=== PATIENT | female | born 1960 | race Caucasian/White ===

== ENCOUNTER 2024-04-24 16:14 | Outpatient (OUT) | payer MEDICARE, SELFPAY ==
[2024-04-24 16:34] LABS: Basophils Percent Auto 1.1 % (0.2-2.0); Eosinophils Absolute Auto 0.2 10^3/uL (0.0-0.7); Hematocrit 41.7 % (36.0-48.0); Hemoglobin 13.8 g/dL (12.0-16.0); Lymphocytes Absolute Auto 1.9 10^3/uL (1.2-3.8); Lymphocytes Percent Auto 51.3 % (20.5-60.0); Mean Corpuscular HGB Conc 33.1 g/dL (29.9-35.2); Mean Corpuscular Hemoglobin 30.7 pg (26.7-34.0); Mean Corpuscular Volume 92.9 fL (81.0-99.0); Mean Platelet Volume 9.9 fL (9.5-13.5); Monocytes Absolute Auto 0.4 10^3/uL (0.3-0.8); Monocytes Percent Auto 10.7 % (1.7-12.0); Neutrophils Absolute Auto 1.2 10^3/uL (1.4-6.5); Neutrophils Percent Auto 32.9 % (43.0-75.0); Platelet Count 192 10^3/uL (150-450); Red Blood Count 4.49 10^6/uL (4.20-5.40); Red Cell Distribution Width 11.6 % (11.0-15.0); White Blood Count 3.7 10^3/uL (4.0-11.0)
[2024-04-24 16:58] LABS: Estimated Average Glucose 105 mg/dL; Glycohemoglobin A1C 5.3 % (4.5-6.2)
[2024-04-24 17:59] LABS: Alanine Aminotransferase 29 U/L (14-59); Albumin Globulin Ratio 1.2; Albumin Level 3.8 g/dL (3.4-5.0); Alkaline Phosphatase 66 U/L (46-116); Aspartate Amino Transferase 20 U/L (15-37); BUN Creatinine Ratio 34.8; Bilirubin Total 0.5 mg/dL (0.2-1.0); Carbon Dioxide 30.3 mmol/L (21.0-32.0); Chloride 107 mmol/L (98-107); Estimated GFR (African America >60 (>=60 mL/min/1.73m^2); Estimated GFR (Non-African Ame >60 (>=60 mL/min/1.73m^2); Globulin 3.3 g/dL; Glucose 108 mg/dL (74-106); Potassium 4.3 mmol/L (3.5-5.1); Sodium 144 mmol/L (136-145); Thyroid Stimulating Hormone 4.337 uIU/mL (0.358-3.740); Total Protein 7.1 g/dL (6.4-8.2)
[2024-04-26 04:07] LABS: Vitamin B12 831 pg/mL (232-1245)
[2024-04-26 11:10] LABS: PTH, Intact 84 pg/mL (15-65)
== END 2024-04-24 16:15 | disposition home or self-care (01) ==
LOC: LAB 16:19
DX: E03.9 Hypothyroidism, unspecified (principal); E21.3 Hyperparathyroidism, unspecified; E55.9 Vitamin D deficiency, unspecified; R73.9 Hyperglycemia, unspecified
CPT/HCPCS: 36415; 80053; 82306; 82607; 83036; 83970; 84443; 85025

== ENCOUNTER 2024-08-27 14:18 | Outpatient (OUT) | payer MEDICARE, SELFPAY ==
--- OUTSIDE RECORDS SUMMARY | 2024-08-27 14:45 | XMS_ITS | CCD ---
Author Organization [facility] Care Team Providers Care Strip Cleaner Name Role Phone RONY, POOL D Attending Unavailable RONY, POOL D Primary Care Unavailable RONY, POOL D Referring Unavailable RONY, POOL D Primary Care Unavailable NURSE, FAMILY MED L [facility] Attending Unavailable SELF, REFERRAL Referring Unavailable RONY, POOL D Primary Care Unavailable RONY, POOL D Attending Unavailable RONY, POOL D Referring Unavailable RONY, POOL D Primary Care Unavailable ASHWINI CERVANTES Attending Unavailable RONY, POOL D Referring Unavailable RONY, POOL D Primary Care Unavailable Problems Problem Classification Problem Date Documented Date Episodic/Chronic Disorders of lipid metabolism (1 source) Hyperlipidemia, unspecified; Translations: [Hyperlipidemia, unspecified] Onset: 09-12-2023 Chronic Hemorrhoids (1 source) Unspecified hemorrhoids; Translations: [Unspecified hemorrhoids] Onset: 09-12-2023 Episodic Nutritional deficiencies (1 source) Mild protein-calorie malnutrition; Translations: [Mild protein-calorie malnutrition ([facility])] Onset: 09-12-2023 Chronic Osteoporosis (1 source) Age-related osteoporosis without current pathological fracture; Translations: [Age-related osteoporosis without current pathological fracture] Onset: 09-12-2023 Chronic Other and ill-defined heart disease (1 source) Cardiomegaly; Translations: [Cardiomegaly] Onset: 10-05-2023 Chronic Other and unspecified benign neoplasm (1 source) Benign neoplasm of parathyroid gland; Translations: [Benign neoplasm of parathyroid gland] Onset: 09-12-2023 Episodic Other endocrine disorders (1 source) Hyperparathyroidism, unspecified; Translations: [Hyperparathyroidism, unspecified ([facility])] Onset: 09-12-2023 Chronic Other nervous system disorders (1 source) Other specified mononeuropathies; Translations: [Other specified mononeuropathies] Onset: 09-12-2023 Chronic Other nervous system disorders (1 source) Other chronic pain; Translations: [Other chronic pain] Onset: 09-12-2023 Chronic Other screening for suspected conditions (not mental disorders or infectious disease) (2 sources) Abnormal electrocardiogram [ECG] [EKG]; Translations: [Encounter for screening mammogram for malignant neoplasm of breast] Onset: 09-12-2023 Episodic Substance-related disorders (1 source) Nicotine dependence, unspecified, uncomplicated; Translations: [Nicotine dependence, unspecified, uncomplicated] Onset: 09-12-2023 Chronic Results Test Name Value Interpretation Reference Range Facil ity CBC WITH DIFFon 09-20-2023 Erythrocyte distribution width (RBC) [Ratio] 12.9 % Normal 11.5-14.0 [facility] Comment on above: Performed By: #### L [id number] #### [facility] [address] [place] [address] [place] Hematocrit (Bld) [Volume fraction] 42.0 % Normal 36.0-48.0 [facility] Comment on above: Performed By: #### L [id number] #### [facility] [address] [place] [address] [place] Hemoglobin (Bld) [Mass/Vol] 14.1 g/dL Normal 11.6-14.8 [facility] Comment on above: Performed By: #### L [id number] #### [facility] [address] [place] [address] US MCH (RBC) [Entitic mass] 30.9 pg Normal 24.4-34.0 [facility] Comment on above: Performed By: #### L [id number] #### [facility] [address] [place] [address] US MCHC (RBC) [Mass/Vol] 33.7 g/dL Normal 30.0-37.0 [facility] Comment on above: Performed By: #### L [id number] #### [facility] [address] [place] [address] US MCV (RBC) [Entitic vol] 91.8 fL Normal 80.0-100.0 [facility] Comment on above: Performed By: #### L [id number] #### [facility] [address] [place] [address] [place] Platelet mean volume (Bld) [Entitic vol] 8.6 fL Normal 7.5-11.5 [facility] Comment on above: Performed By: #### L [id number] #### [facility] [address] [place] [address] [place] PLATELETS AUTOMATED 195 x10???3/uL Normal 130-400 [facility] Comment on above: Performed By: #### L [id number] #### [facility] [address] [place] [address] US RBC AUTOMATED 4.57 x10???6/uL Normal 3.50-5.50 [facility] Comment on above: Performed By: #### L [id number] #### [facility] [address] [place] [address] US WBC AUTOMATED CORRECTED 4.4 x10???3/uL Low 4.5-11.5 [facility] Comment on above: Performed By: #### L [id number] #### [facility] [address] [place] [address] US COMPREHENSIVE METABOLIC PNL, FASTINGon 09-20-2023 Albumin [Mass/Vol] 4.2 g/dL Normal 3.5-5.0 [facility] Comment on above: Performed By: #### L [id number] #### [facility] [address] [place] [address] [place] Albumin/Globulin [Mass ratio] 1.6 {ratio} Normal 1.5-2.5 [facility] Comment on above: Performed By: #### L [id number] #### [facility] [address] [place] [address] [place] ALP [Catalytic activity/Vol] 76 U/L Normal 38-126 [facility] Comment on above: Performed By: #### L [id number] #### [facility] [address] [place] [address] [place] ALT [Catalytic activity/Vol] 41 U/L High <35 [facility] Comment on above: Performed By: #### L [id number] #### [facility] [address] [place] [address] [place] Anion gap [Moles/Vol] 7 mmol/L Normal 5-19 [facility] Comment on above: Performed By: #### L [id number] #### [facility] [address] [place] [address] US AST [Catalytic activity/Vol] 48 U/L High 14-36 [facility] Comment on above: Performed By: #### L [id number] #### [facility] [address] [place] [address] [place] Bilirubin [Mass/Vol] 0.3 mg/dL Normal 0.2-1.3 [facility] Comment on above: Performed By: #### L [id number] #### [facility] [address] [place] [address] [place] Calcium [Mass/Vol] 10.8 mg/dL High 8.4-10.2 [facility] Comment on above: Performed By: #### L [id number] #### [facility] [address] [place] [address] [place] Chloride [Moles/Vol] 102 mmol/L Normal 98-107 [facility] Comment on above: Performed By: #### L [id number] #### [facility] [address] [place] [address] [place] CO2 [Moles/Vol] 29 mmol/L Normal 22-30 [facility] Comment on above: Performed By: #### L [id number] #### [facility] [address] [place] [address] US Creatinine [Mass/Vol] 0.73 mg/dL Normal 0.52-1.00 [facility] Comment on above: Performed By: #### L [id number] #### [facility] [address] [place] [address] US GFR/1.73 sq M.predicted MDRD (S/P/Bld) [Vol rate/Area] mL/min/{1.73_m2} Normal >60 [facility] Comment on above: Performed By: #### L [id number] #### [facility] [address] [place] [address] [place] Glucose [Mass/Vol] 107 mg/dL High 74-106 [facility] Comment on above: Performed By: #### L [id number] #### [facility] [address] [place] [address] [place] Narrative Estimated Glomerular Filtration Rate (eGFR) is calculated using the CKD-EPI (2020) equation, intended for patients 18 years of age and older. If gender is not documented or unknown , there will be no eGFR calculation. Abnormal [facility] Comment on above: Performed By: #### L [id number] #### [facility] [address] [place] [address] [place] Potassium [Moles/Vol] 4.3 mmol/L Normal 3.5-5.1 [facility] Comment on above: Performed By: #### L [id number] #### [facility] [address] [place] [address] [place] Protein [Mass/Vol] 6.9 g/dL Normal 6.3-8.2 [facility] Comment on above: Performed By: #### L [id number] #### [facility] [address] [place] [address] [place] Sodium [Moles/Vol] 138 mmol/L Normal 137-145 [facility] Comment on above: Performed By: #### L [id number] #### [facility] [address] [place] [address] US Urea nitrogen [Mass/Vol] 35 mg/dL High 7-17 [facility] Comment on above: Performed By: #### L [id number] #### [facility] [address] [place] [address] US Urea nitrogen/Creatinine [Mass ratio] 48 mg/mg High 6-20 [facility] Comment on above: Performed By: #### L [id number] #### [facility] [address] [place] [address] [place] LIPID PANELon 09-20-2023 Cholesterol [Mass/Vol] 168 mg/dL Normal 0-200 [facility] Comment on above: Performed By: #### L [id number] #### [facility] [address] [place] [address] US Cholesterol in HDL [Mass/Vol] 73 mg/dL Normal >40 [facility] Comment on above: Performed By: #### L [id number] #### [facility] [address] [place] [address] US Cholesterol in LDL [Mass/Vol] 79 mg/dL Normal <100 [facility] Comment on above: Performed By: #### L [id number] #### [facility] [address] [place] [address] US Triglyceride [Mass/Vol] 79 mg/dL Normal <150 [facility] Comment on above: Performed By: #### L [id number] #### [facility] [address] [place] [address] US MANUAL DIFFERENTIALon 2023 BASOPHIL % MANUAL 2 % High 0-1 [facility] Comment on above: Performed By: #### L [id number] #### [facility] [address] [place] [address] [place] BASOPHIL ABSOLUTE COUNT 10*3/UL BY MANUAL COUNT 0.09 x10???3/uL Normal 0.00-0.20 [facility] Comment on above: Performed By: #### L [id number] #### [facility] [address] [place] [address] US EOSINOPHIL % MANUAL 3 % Normal 0-4 [facility] Comment on above: Performed By: #### L [id number] #### [facility] [address] [place] [address] US EOSINOPHIL ABSOLUTE COUNT 10*3/UL BY MANUAL COUNT 0.13 x10???3/uL Normal 0.00-0.60 [facility] Comment on above: Performed By: #### L [id number] #### [facility] [address] [place] [address] US LYMPHOCYTE % MANUAL 49 % High 24-44 [facility] Comment on above: Performed By: #### L [id number] #### [facility] [address] [place] [address] US LYMPHOCYTE ABSOLUTE COUNT 10*3/UL BY MANUAL COUNT 2.16 x10???3/uL Normal 1.10-3.80 [facility] Comment on above: Performed By: #### L [id number] #### [facility] [address] [place] [address] US MONOCYTE % MANUAL 15 % High 0-10 [facility] Comment on above: Performed By: #### L [id number] #### [facility] [address] [place] [address] US MONOCYTE ABSOLUTE COUNT 10*3/UL BY MANUAL COUNT 0.66 x10???3/uL Normal 0.10-0.80 [facility] Comment on above: Performed By: #### L [id number] #### [facility] [address] [place] [address] US NEUTROPHIL % MANUAL 31 % Low 36-66 [facility] Comment on above: Performed By: #### L [id number] #### [facility] [address] [place] [address] US NEUTROPHIL ABSOLUTE COUNT 10*3/UL BY MANUAL COUNT 1.36 x10???3/uL Low 1.80-7.50 [facility] Comment on above: Performed By: #### L [id number] #### [facility] [address] [place] [address] US PLATELET ESTIMATE Adequate Normal [facility] Comment on above: Performed By: #### L [id number] #### [facility] [address] [place] [address] US PLATELET SATELLITOSIS Normal [facility] Comment on above: Performed By: #### L [id number] #### [facility] [address] [place] [address] [place] RBC MORPHOLOGY COMMENT Normal [facility] Comment on above: Performed By: #### L [id number] #### [facility] [address] [place] [address] US WBC MORPHOLOGY COMMENT Normal [facility] Comment on above: Performed By: #### L [id number] #### [facility] [address] [place] [address] US WBC PULL AUTOMATED CORRECTED 4.4 x10???3/uL Normal [facility] Comment on above: Performed By: #### L [id number] #### [facility] [address] [place] [address] US PTH INTACT W/O CALCIUM (3520 2)on 07-16-2021 PTH INTACT W/O CALCIUM (37805) PTH INTACT 101 (NOTE) Interpretive Guide Intact PTH Calcium ------- Normal Parathyroid Normal Normal Hypoparathyroidism Low or Low Normal Low Hyperparathyroidism Primary Normal or High High Secondary High Normal or Low Tertiary High High Non-Parathyroid Hypercalcemia Low or Low Normal High Test performed at [facility] [address] [address] Director: PRANAY CARVER MD [facility] 14-64 [facility]. Comment on above: Performed By: #### T SH, MCMP, T3R, VIDT, ADIF, FRT4, B12, ABC #### [facility] [address] [place] [address] THYROGLOBULIN PANEL ROQUE INCL UDED (29898)on 07-16-2021 THYROGLOBULIN PANEL ROQUE INCLUDED (44945) ANTI THYROGLOBULIN AB 2 THYROGLOBULIN <0.1 (NOTE) Reference Range: Intact Thyroid 2.8-40.9 Athyrotic <0.1 Note: Abnormal flagging is based on the reference interval for patients with intact thyroid. This test was performed using the Pratibha Yesenia chemiluminescent method. Values obtained from different assay methods cannot be used interchangeably. Thyroglobulin levels, regardless of value, should not be interpreted as absolute evidence of the presence or absence of disease. This specimen was found to contain anti-thyroglobulin antibodies. The presence of these autoantibodies may cause falsely low thyroglobulin values. In Tg-antibody positive patients the thyroglobulin by tandem mass spectrometry (test code 31648 - Thyroglobulin, LC/MS/MS; or panel test code 64417 - Thyroid Cancer (Thyroglobulin) Monitoring) test is recommended because it has no interference from autoantibodies. For additional information, please refer to http://education.[employer]/faq/ TEM795 (This link is being provided for informational/ educational purposes only.) Test performed at [address] [address] Director: PRANAY CARVER MD Low SEE COMMENT [facility] Comment on above: Performed By: #### T SH, MCMP, T3R, VIDT, ADIF, FRT4, B12, ABC #### [facility] [address] [place] [address] 32513 AUTOMATED BLOOD COUNTon 06-24 Erythrocyte distribution width (RBC) [Ratio] 13.2 % Normal 11.5-14.5 [facility] Comment on above: Performed By: #### T SH, MCMP, T3R, VIDT, ADIF, FRT4, B12, ABC #### [facility] [address] [place] [address]67[address] Hematocrit (Bld) [Volume fraction] 37.9 % Normal 36-48 [facility] Comment on above: Performed By: #### T SH, MCMP, T3R, VIDT, ADIF, FRT4, B12, ABC #### [facility] [address] [place] [address] Hemoglobin (Bld) [Mass/Vol] 12.7 g/dL Normal 12.0-15.0 [facility] Comment on above: Performed By: #### T SH, MCMP, T3R, VIDT, ADIF, FRT4, B12, ABC #### [facility] [address] [place] [address] 29585 MCH (RBC) [Entitic mass] 29.7 pg Normal 25.4-34.6 [facility] Comment on above: Performed By: #### T SH, MCMP, T3R, VIDT, ADIF, FRT4, B12, ABC #### [facility] [address] [place] [address] 31188 MCHC (RBC) [Mass/Vol] 33.5 g/dL Normal 30-37 [facility] Comment on above: Performed By: #### T SH, MCMP, T3R, VIDT, ADIF, FRT4, B12, ABC #### [facility] [address] [place] [address]61 MCV (RBC) [Entitic vol] 88.5 fL Normal 79-98 [facility] Comment on above: Performed By: #### T SH, MCMP, T3R, VIDT, ADIF, FRT4, B12, ABC #### [facility] [address] [place] [address]234 Platelets (Bld) [#/Vol] 243 10*3/uL Normal 130-400 [facility] Comment on above: Performed By: #### T SH, MCMP, T3R, VIDT, ADIF, FRT4, B12, ABC #### [facility] [address] [place] [address] 06608 RBC (Bld) [#/Vol] 4.29 10*6/uL Normal 3.5-5.5 [facility] Comment on above: Performed By: #### T SH, MCMP, T3R, VIDT, ADIF, FRT4, B12, ABC #### [facility] [address] [place] [address] 33655 WBC (Bld) [#/Vol] 7.6 10*3/uL Normal 4.5-11.5 [facility] Comment on above: Performed By: #### T SH, MCMP, T3R, VIDT, ADIF, FRT4, B12, ABC #### [facility] [address] [place] [address] 60369 COMP METABOLIC PANELon 07-15 Albumin [Mass/Vol] 4.3 g/dL Normal 3.5-5.0 [facility] Comment on above: Performed By: #### T SH, MCMP, T3R, VIDT, ADIF, FRT4, B12, ABC #### [facility] [address] [place] [address] 36750 Albumin/Globulin [Mass ratio] 1.4 {ratio} Low 1.5-2.5 [facility] Comment on above: Performed By: #### T SH, MCMP, T3R, VIDT, ADIF, FRT4, B12, ABC #### [facility] [address] [place] [address] 51487 ALK PHOS 82 U/L Normal 38-126 [facility] Comment on above: Performed By: #### T SH, MCMP, T3R, VIDT, ADIF, FRT4, B12, ABC #### [facility] [address] [place] [address] 26526 ALT [Catalytic activity/Vol] 22 U/L Normal <35 [facility] Comment on above: Performed By: #### T SH, MCMP, T3R, VIDT, ADIF, FRT4, B12, ABC #### [facility] [address] [place] [address] 64350 Anion gap [Moles/Vol] 10 mmol/L Normal 5-19 [facility] Comment on above: Performed By: #### T SH, MCMP, T3R, VIDT, ADIF, FRT4, B12, ABC #### [facility] [address] [place] [address] 12702 AST [Catalytic activity/Vol] 34 U/L Normal 14-36 [facility] Comment on above: Performed By: #### T SH, MCMP, T3R, VIDT, ADIF, FRT4, B12, ABC #### [facility] [address] [place] [address] Bilirubin [Mass/Vol] 0.4 mg/dL Normal 0.2-1.3 [facility] Comment on above: Performed By: #### T SH, MCMP, T3R, VIDT, ADIF, FRT4, B12, ABC #### [facility] [address] [place] [address] 63220 Calcium [Mass/Vol] 10.4 mg/dL High 8.4-10.2 [facility] Comment on above: Performed By: #### T SH, MCMP, T3R, VIDT, ADIF, FRT4, B12, ABC #### [facility] [address] [place] [address] 68804 Chloride [Moles/Vol] 101 mmol/L Normal 98-107 [facility] Comment on above: Performed By: #### T SH, MCMP, T3R, VIDT, ADIF, FRT4, B12, ABC #### [facility] [address] [place] [address] 40036 CO2 [Moles/Vol] 28 mmol/L Normal 22-30 [facility]. Comment on above: Performed By: #### T SH, MCMP, T3R, VIDT, ADIF, FRT4, B12, ABC #### [facility] [address] [place] [address] 82406 Creatinine [Mass/Vol] 0.69 mg/dL Normal 0.52-1.04 [facility] Comment on above: Performed By: #### T SH, MCMP, T3R, VIDT, ADIF, FRT4, B12, ABC #### [facility] [address] [place] [address] 93150 eGFR AM. >60 Normal >60 [facility] Comment on above: Performed By: #### T SH, MCMP, T3R, VIDT, ADIF, FRT4, B12, ABC #### [facility] [address] [place] [address] eGFR NON AM. >60 Normal >60 [facility]. Comment on above: Performed By: #### T SH, MCMP, T3R, VIDT, ADIF, FRT4, B12, ABC #### [facility] [address] [place] [address] Glucose [Mass/Vol] 110 mg/dL High 74-106 [facility] Comment on above: Performed By: #### T SH, MCMP, T3R, VIDT, ADIF, FRT4, B12, ABC #### [facility] [address] [place] [address] Potassium [Moles/Vol] 4.2 mmol/L Normal 3.5-5.1 [facility] Comment on above: Performed By: #### T SH, MCMP, T3R, VIDT, ADIF, FRT4, B12, ABC #### [facility] [address] [place] [address] Protein [Mass/Vol] 7.3 g/dL Normal 6.3-8.2 [facility] Comment on above: Performed By: #### T SH, MCMP, T3R, VIDT, ADIF, FRT4, B12, ABC #### [facility] [address] [place] [address] Sodium [Moles/Vol] 139 mmol/L Normal 137-145 [facility] Comment on above: Performed By: #### T SH, MCMP, T3R, VIDT, ADIF, FRT4, B12, ABC #### [facility] [address] [place] [address] Urea nitrogen [Mass/Vol] 29 mg/dL [facility] 7-17 [facility] Comment on above: Performed By: #### T SH, MCMP, T3R, VIDT, ADIF, FRT4, B12, ABC #### [facility] [address] [place] [address] Urea nitrogen/Creatinine [Mass ratio] 42.0 mg/mg High 6-20 [facility] Comment on above: Performed By: #### T SH, MCMP, T3R, VIDT, ADIF, FRT4, B12, ABC #### [facility] [address] [place] [address] 10203 DIFFERENTIALon 07-15-2021 ABSOLUTE NEUTROPHILS DO NO 3.9 K/UL Normal 1.8-7.5 [facility] Comment on above: Performed By: #### T SH, MCMP, T3R, VIDT, ADIF, FRT4, B12, ABC #### [facility] [address] [place] [address] 91948 Basophils (Bld) [#/Vol] 0.1 10*3/uL Normal 0-0.2 [facility] Comment on above: Performed By: #### T SH, MCMP, T3R, VIDT, ADIF, FRT4, B12, ABC #### [facility] [address] [place] [address] 98887 Basophils/100 WBC (Bld) 1.0 % Normal 0.0-2.3 [facility]. Comment on above: Performed By: #### T SH, MCMP, T3R, VIDT, ADIF, FRT4, B12, ABC #### [facility] [address] [place] [address] 15758 DIFF TYPE AUTO Normal [facility] Comment on above: Performed By: #### T SH, MCMP, T3R, VIDT, ADIF, FRT4, B12, ABC #### [facility] [address] [place] [address] 11792 Eosinophils (Bld) [#/Vol] 0.3 10*3/uL Normal 0-0.6 [facility] Comment on above: Performed By: #### T SH, MCMP, T3R, VIDT, ADIF, FRT4, B12, ABC #### [facility] [address] [place] [address] 51047 Eosinophils/100 WBC (Bld) 3.9 % Normal 0.1-4.5 [facility] Comment on above: Performed By: #### T SH, MCMP, T3R, VIDT, ADIF, FRT4, B12, ABC #### [facility] [address] [place] [address] Lymphocytes (Bld) [#/Vol] 2.5 10*3/uL Normal 1.1-3.8 [facility] Comment on above: Performed By: #### T SH, MCMP, T3R, VIDT, ADIF, FRT4, B12, ABC #### [facility] [address] [place] [address] 04513 Lymphocytes/100 WBC (Bld) 33.3 % Normal 18.5-46.9 [facility] Comment on above: Performed By: #### T SH, MCMP, T3R, VIDT, ADIF, FRT4, B12, ABC #### [facility] [address] [place] [address] 29906 Monocytes (Bld) [#/Vol] 0.8 10*3/uL Normal 0.1-0.8 [facility] Comment on above: Performed By: #### T SH, MCMP, T3R, VIDT, ADIF, FRT4, B12, ABC #### [facility] [address] [place] [address] 10350 Monocytes/100 WBC (Bld) 10.8 % Normal 4.2-12.4 [facility] Comment on above: Performed By: #### T SH, MCMP, T3R, VIDT, ADIF, FRT4, B12, ABC #### [facility] [address] [place] [address] 16232 Neutrophils/100 WBC (Bld) 51.0 % Normal 41.3-69.5 [facility] Comment on above: Performed By: #### T SH, MCMP, T3R, VIDT, ADIF, FRT4, B12, ABC #### [facility] [address] [place] [address]83 [place] 25 VITAMIN D TOTALon 06-24 [place] 25 VITAMIN D TOTAL 39 ng/mL Normal 30-100 [facility] Comment on above: Result Comment: Reference Values: DEFICIENT <20 ng/mL INSUFFICIENT 20 to <30 ng/mL SUFFICIENT 30 to 100 ng/mL POTENTIAL TOXICITY >100 ng/mL Performed By: #### T SH, MCMP, T3R, VIDT, ADIF, FRT4, B12, ABC #### [facility] [address] [place] [address] 68550 T4,FREEon 07-15-2021 Free T4 [Mass/Vol] 1.75 ng/dL Normal 0.78-2.19 [facility] Comment on above: Performed By: #### T SH, MCMP, T3R, VIDT, ADIF, FRT4, B12, ABC #### [facility] [address] [place] [address] 74576 TOTAL T3on 07-15-2021 TOTAL T3 1.29 ng/mL Normal 0.970-1.69 [facility] Comment on above: Performed By: #### T SH, MCMP, T3R, VIDT, ADIF, FRT4, B12, ABC #### [facility] [address] [place] [address] 03696 TSH, 3RD GENERATIONon 2021 TSH, 3RD GENERATION 0.034 mIU/L Low 0.465-4.68 [facility] Comment on above: Performed By: #### T SH, MCMP, T3R, VIDT, ADIF, FRT4, B12, ABC #### [facility] [address] [place] [address] 59260 VITAMIN B12on 07-15-2021 Cobalamin (Vitamin B12) [Mass/Vol] 824 pg/mL Normal 239-931 [facility] Comment on above: Performed By: #### T SH, MCMP, T3R, VIDT, ADIF, FRT4, B12, ABC #### [facility] [address] [place] [address] 91230 OPIATES CONFIRMATION (17928) on 09-04-2020 OPIATES CONFIRMATION (89327) CODEINE NEGATIVE (NOTE) See Note 1 MORPHINE >93762 (NOTE) See Note 1 HYDROCODONE NEGATIVE (NOTE) See Note 1 HYDROMORPHONE 497 (NOTE) See Note 1 OXYCODONE NEGATIVE (NOTE) See Note 1 OXYMORPHONE NEGATIVE (NOTE) See Note 1 NORHYDROCODONE NEGATIVE (NOTE) See Note 1 NOROXYCODONE NEGATIVE (NOTE) See Note 1 NOTE SEE NOTE (NOTE) See Note 2 Note 1 This test was developed and its analytical performance characteristics have been determined by [facility]. It has not been cleared or approved by the FDA. This assay has been validated pursuant to the CLIA regulations and is used for clinical purposes. Note 2 This drug testing is for medical treatment only. Analysis was performed as non-forensic testing and these results should be used only by healthcare providers to render diagnosis or treatment, or to monitor progress of medical conditions. For assistance with interpreting these drug results, please contact a [facility] Toxicology Specialist: [phone] ( ), M-F, 8am-6pm EST. Test performed at [address] [address] Director: PRANAY CARVER MD [facility] Comment on above: Performed By: #### T SH, MCMP, T3R, VIDT, ADIF, FRT4, B12, ABC #### [facility] [address] [place] [address], [place] [address] PTH INTACT W/O CALCIUM (3520 2)on 09-03-2020 PTH INTACT W/O CALCIUM (21572) PTH INTACT 112 (NOTE) Interpretive Guide Intact PTH Calcium ------- Normal Parathyroid Normal Normal Hypoparathyroidism Low or Low Normal Low Hyperparathyroidism Primary Normal or High High Secondary High Normal or Low Tertiary High High Non-Parathyroid Hypercalcemia Low or Low Normal High Test performed at [address] [address] Director: PRANAY CARVER MD [address] Comment on above: Performed By: #### T SH, MCMP, T3R, VIDT, ADIF, FRT4, B12, ABC #### [facility] [address] [place] [address] 72074 A1Con 09-02-2020 HbA1c (Bld) [Mass fraction] 5.2 % Normal 4.0-6.0 [facility] Comment on above: Performed By: #### T SH, MCMP, T3R, VIDT, ADIF, FRT4, B12, ABC #### [facility] [address] [place] [address] 40570 AUTOMATED BLOOD COUNTon 08-21 Erythrocyte distribution width (RBC) [Ratio] 13.0 % Normal 11.5-14.5 [facility] Comment on above: Performed By: #### T SH, MCMP, T3R, VIDT, ADIF, FRT4, B12, ABC #### [facility] [address] [place] [address] 71922 Hematocrit (Bld) [Volume fraction] 39.2 % Normal 36-48 [facility] Comment on above: Performed By: #### T SH, MCMP, T3R, VIDT, ADIF, FRT4, B12, ABC #### [facility] [address] [place] [address] 90110 Hemoglobin (Bld) [Mass/Vol] 13.1 g/dL Normal 12.0-15.0 [facility] Comment on above: Performed By: #### T SH, MCMP, T3R, VIDT, ADIF, FRT4, B12, ABC #### [facility] [address] [place] [address] 10170 MCH (RBC) [Entitic mass] 29.8 pg Normal 25.4-34.6 [facility] Comment on above: Performed By: #### T SH, MCMP, T3R, VIDT, ADIF, FRT4, B12, ABC #### [facility] [address] [place] [address] 47035 MCHC (RBC) [Mass/Vol] 33.3 g/dL Normal 30-37 [facility] Comment on above: Performed By: #### T SH, MCMP, T3R, VIDT, ADIF, FRT4, B12, ABC #### [facility] [address] [place] [address] 27632 MCV (RBC) [Entitic vol] 89.3 fL Normal 79-98 [facility] Comment on above: Performed By: #### T SH, MCMP, T3R, VIDT, ADIF, FRT4, B12, ABC #### [facility] [address] [place] [address] 60752 Platelets (Bld) [#/Vol] 210 10*3/uL Normal 130-400 [facility] Comment on above: Performed By: #### T SH, MCMP, T3R, VIDT, ADIF, FRT4, B12, ABC #### [facility] [address] [place] [address] 48620 RBC (Bld) [#/Vol] 4.39 10*6/uL Normal 3.5-5.5 [facility] Comment on above: Performed By: #### T SH, MCMP, T3R, VIDT, ADIF, FRT4, B12, ABC #### [facility] [address] [place] [address] 27355 WBC (Bld) [#/Vol] 3.3 10*3/uL Low 4.5-11.5 [facility] Comment on above: Performed By: #### T SH, MCMP, T3R, VIDT, ADIF, FRT4, B12, ABC #### [facility] [address] [place] [address] 92234 BONE MINERAL DENSITY SCANon 09-02-2020 BONE MINERAL DENSITY SCAN [id number] Signs/Symptoms: [facility] ID#[id number] History: SCREENING,HYPER CALCEMIA,HYPO THYROIDISM BONE MINERAL DENSITY SCAN CLINICAL HISTORY: Female, age 60 years. SCREENING,HYPER CALCEMIA,HYPO THYROIDISM. post menopausal screen for osteoporosis. . TECHNIQUE: DEXA scan of spine, dual hip COMPARISON: na FINDINGS: T-SCORES Lumbar spine: -3.1 (osteoporosis); Previously: na Left hip: -2.9 (osteoporosis); Previously: na Right hip: -3.2 (osteoporosis); Previously: na The T-scores are also available for review on [facility] PACS or by accessing the [facility] electronic medical record, [employer]. IMPRESSION: OSTEOPOROSIS IS PRESENT IN THE LUMBAR SPINE AND IN BOTH HIPS Approved By: See Singer Electronically Signed On: 09/02/2020 14:05 by: See Singer Order Number: [id number] [facility] Comment on above: Order Comment: PT SC HEDULED AND HAS ORDERS PREV [facility]...PT WILL TRY TO HAVE MAILED--- COMP METABOLIC PANELon 09-02 Albumin [Mass/Vol] 4.2 g/dL Normal 3.5-5.0 [facility] Comment on above: Performed By: #### T SH, MCMP, T3R, VIDT, ADIF, FRT4, B12, ABC #### [facility] [address] [place] [address] 12840 Albumin/Globulin [Mass ratio] 1.5 {ratio} Normal 1.5-2.5 [facility] Comment on above: Performed By: #### T SH, MCMP, T3R, VIDT, ADIF, FRT4, B12, ABC #### [facility] [address] [place] [address] 61661 ALK PHOS 62 U/L Normal 38-126 [facility] Comment on above: Performed By: #### T SH, MCMP, T3R, VIDT, ADIF, FRT4, B12, ABC #### [facility] [address] [place] [address] 08438 ALT [Catalytic activity/Vol] 18 U/L Normal <35 [facility] Comment on above: Performed By: #### T SH, MCMP, T3R, VIDT, ADIF, FRT4, B12, ABC #### [facility] [address] [place] [address] 49597 Anion gap [Moles/Vol] 4 mmol/L Low 5-19 [facility] Comment on above: Performed By: #### T SH, MCMP, T3R, VIDT, ADIF, FRT4, B12, ABC #### [facility] [address] [place] [address] AST [Catalytic activity/Vol] 28 U/L Normal 14-36 [facility] Comment on above: Performed By: #### T SH, MCMP, T3R, VIDT, ADIF, FRT4, B12, ABC #### [facility] [address] [place] [address] 94430 Bilirubin [Mass/Vol] 0.3 mg/dL Normal 0.2-1.3 [facility] Comment on above: Performed By: #### T SH, MCMP, T3R, VIDT, ADIF, FRT4, B12, ABC #### [facility] [address] [place] [address] 43383 Calcium [Mass/Vol] 10.8 mg/dL High 8.4-10.2 [facility] Comment on above: Performed By: #### T SH, MCMP, T3R, VIDT, ADIF, FRT4, B12, ABC #### [facility] [address] [place] [address] 06988 Chloride [Moles/Vol] 102 mmol/L Normal 98-107 [facility]. Comment on above: Performed By: #### T SH, MCMP, T3R, VIDT, ADIF, FRT4, B12, ABC #### [facility] [address] [place] [address] 73649 CO2 [Moles/Vol] 31 mmol/L High 22-30 [facility] Comment on above: Performed By: #### T SH, MCMP, T3R, VIDT, ADIF, FRT4, B12, ABC #### [facility] [address] [place] [address] 56976 Creatinine [Mass/Vol] 0.64 mg/dL Normal 0.52-1.04 [facility] Comment on above: Performed By: #### T SH, MCMP, T3R, VIDT, ADIF, FRT4, B12, ABC #### [facility] [address] [place] [address] eGFR AM. >60 Normal >60 [facility] Comment on above: Performed By: #### T SH, MCMP, T3R, VIDT, ADIF, FRT4, B12, ABC #### [facility] [address] [place] [address] 80299 eGFR NON AM. >60 Normal >60 [facility] Comment on above: Performed By: #### T SH, MCMP, T3R, VIDT, ADIF, FRT4, B12, ABC #### [facility] [address] [place] [address] 81657 Glucose [Mass/Vol] 95 mg/dL Normal 74-106 [facility] Comment on above: Performed By: #### T SH, MCMP, T3R, VIDT, ADIF, FRT4, B12, ABC #### [facility] [address] [place] [address] 24893 Potassium [Moles/Vol] 4.5 mmol/L Normal 3.5-5.1 [facility] Comment on above: Performed By: #### T SH, MCMP, T3R, VIDT, ADIF, FRT4, B12, ABC #### [facility] [address] [place] [address] 44966 Protein [Mass/Vol] 7.0 g/dL Normal 6.3-8.2 [facility] Comment on above: Performed By: #### T SH, MCMP, T3R, VIDT, ADIF, FRT4, B12, ABC #### [facility] [address] [place] [address] 38391 Sodium [Moles/Vol] 137 mmol/L Normal 137-145 [facility] Comment on above: Performed By: #### T SH, MCMP, T3R, VIDT, ADIF, FRT4, B12, ABC #### [facility] [address] [place] [address] 11691 Urea nitrogen [Mass/Vol] 16 mg/dL Normal 7-17 [facility] Comment on above: Performed By: #### T SH, MCMP, T3R, VIDT, ADIF, FRT4, B12, ABC #### [facility] [address] [place] [address] Urea nitrogen/Creatinine [Mass ratio] 25.0 mg/mg High 6-20 [facility] Comment on above: Performed By: #### T SH, MCMP, T3R, VIDT, ADIF, FRT4, B12, ABC #### [facility] [address] [place] [address] DIFFERENTIALon 09-02-2020 ABSOLUTE SEGS 1.5 K/UL Low 1.8-7.5 [facility] Comment on above: Performed By: #### T SH, MCMP, T3R, VIDT, ADIF, FRT4, B12, ABC #### [facility] [address] [place] [address] 48546 Basophils (Bld) [#/Vol] 0.1 10*3/uL Normal 0-0.2 [facility] Comment on above: Performed By: #### T SH, MCMP, T3R, VIDT, ADIF, FRT4, B12, ABC #### [facility] [address] [place] [address] 49634 Basophils/100 WBC (Bld) 2 % High 0-1 [facility]. Comment on above: Performed By: #### T SH, MCMP, T3R, VIDT, ADIF, FRT4, B12, ABC #### [facility] [address] [place] [address] DIFF TYPE MANUAL Normal [facility] Comment on above: Performed By: #### T SH, MCMP, T3R, VIDT, ADIF, FRT4, B12, ABC #### [facility] [address] [place] [address] 18456 Eosinophils (Bld) [#/Vol] 0.2 10*3/uL Normal 0-0.6 [facility] Comment on above: Performed By: #### T SH, MCMP, T3R, VIDT, ADIF, FRT4, B12, ABC #### [facility] [address] [place] [address] Eosinophils/100 WBC (Bld) 5 % High 0-4 [facility]. Comment on above: Performed By: #### T SH, MCMP, T3R, VIDT, ADIF, FRT4, B12, ABC #### [facility] [address] [facility] [place] [address] Lymphocytes (Bld) [#/Vol] 1.2 10*3/uL Normal 1.1-3.8 [facility] Comment on above: Performed By: #### T SH, MCMP, T3R, VIDT, ADIF, FRT4, B12, ABC #### [facility] [address] [facility] [place] [address] Lymphocytes/100 WBC (Bld) 36 % Normal 24-44 [facility] Comment on above: Performed By: #### T SH, MCMP, T3R, VIDT, ADIF, FRT4, B12, ABC #### [facility] [address] [place] [address] Monocytes (Bld) [#/Vol] 0.3 10*3/uL Normal 0.1-0.8 [facility]. Comment on above: Performed By: #### T SH, MCMP, T3R, VIDT, ADIF, FRT4, B12, ABC #### [facility] [address] [facility] [place] [address] Monocytes/100 WBC (Bld) 9 % Normal 0-10 [facility] Comment on above: Performed By: #### T SH, MCMP, T3R, VIDT, ADIF, FRT4, B12, ABC #### [facility] [address] [facility] [address] PLATELET ESTIMATE ADEQUATE Normal [facility] Comment on above: Performed By: #### T SH, MCMP, T3R, VIDT, ADIF, FRT4, B12, ABC #### [facility] [address] [facility] [place] [address] RBC morphology finding Nom (Bld) NORMAL Normal [facility] Comment on above: Performed By: #### T SH, MCMP, T3R, VIDT, ADIF, FRT4, B12, ABC #### [facility] [address] [place] [address] SEGS 48 % Normal 36-66 [facility] Comment on above: Performed By: #### T SH, MCMP, T3R, VIDT, ADIF, FRT4, B12, ABC #### [facility] [address] [place] [address] [facility] S[facility] MAMMOGRAPHY SCREENING TOMOSYNTHESIS [id number] Signs/Symptoms: [facility] ID#[id number] screening History: SCREENING,HYPER CALCEMIA,HYPO THYROIDISM MAMMOGRAPHY SCREENING TOMOSYNTHESIS CLINICAL HISTORY: Female, Age 60 years, SCREENING,HYPER CALCEMIA,HYPO THYROIDISM TECHNIQUE: Bilateral screening digital breast tomosynthesis with C-View. Computer aided detection. COMPARISON: Prior exam(s) dating back to 06/09/2012. FINDINGS: The breasts are extremely dense which lowers the sensitivity of mammography. Asymmetries are stable. No suspicious masses, areas of developing architectural distortion, or suspicious calcifications. IMPRESSION: BI-RADS 2: BENIGN. RECOMMEND ANNUAL MAMMOGRAPHIC SCREENING. GIVEN THE DENSITY OF THE BREASTS, CONSIDER BASELINE MR IMAGING . The patient will be notified of the results by letter. Approved By: Chad Prado Electronically Signed On: 09/08/2020 14:42 by: Chad Prado Order Number: [id number] [facility] Comment on above: Order Comment: [facility]EDUL[facility]PT WILL TRY TO HAVE MAILED- requested verified screening orders klr [place] 25 VITAMIN D TOTALon 08-21 [place] 25 VITAMIN D TOTAL 34 ng/mL Normal 30-100 [facility] Comment on above: Result Comment: Reference Values: DEFICIENT <20 ng/mL INSUFFICIENT 20 to <30 ng/mL SUFFICIENT 30 to 100 ng/mL POTENTIAL TOXICITY >100 ng/mL Performed By: #### T SH, MCMP, T3R, VIDT, ADIF, FRT4, B12, ABC #### [facility] [address] [place] [address] T4,FREEon 09-02-2020 Free T4 [Mass/Vol] 1.53 ng/dL Normal 0.78-2.19 [facility] Comment on above: Performed By: #### T SH, MCMP, T3R, VIDT, ADIF, FRT4, B12, ABC #### [facility] [address] [place] [address] TOTAL T3on 09-02-2020 TOTAL T3 1.22 ng/mL Normal 0.970-1.69 [facility] Comment on above: Performed By: #### T SH, MCMP, T3R, VIDT, ADIF, FRT4, B12, ABC #### [facility] [address] [place] [address] 31079 TSH, 3RD GENERATIONon 2020 TSH, 3RD GENERATION 0.104 mIU/L Low 0.465-4.68 [facility] Comment on above: Result Comment: Reference Ranges: First Trimester 0.26 to 2.66 mIU/L Second Trimester 0.55 to 2.73 mIU/L Third Trimester 0.43 to 2.91 mIU/L Performed By: #### T SH, MCMP, T3R, VIDT, ADIF, FRT4, B12, ABC #### [facility] [address] [place] [address] 57040 URINE DRUG SCRN/RFLX CONFon 09-02-2020 AMPHETAMINE Not detected [facility]. Comment on above: Performed By: #### T SH, MCMP, T3R, VIDT, ADIF, FRT4, B12, ABC #### [facility] [address] [place] [address] 04389 BARBITURATE Not detected [facility] Comment on above: Performed By: #### T SH, MCMP, T3R, VIDT, ADIF, FRT4, B12, ABC #### [facility] [address] [place] [address] BENZODIAZEPINE Not detected [facility] Comment on above: Performed By: #### T SH, MCMP, T3R, VIDT, ADIF, FRT4, B12, ABC #### [facility] [address] [place] [address] BUPRENORPHINE Not detected [facility]. Comment on above: Performed By: #### T SH, MCMP, T3R, VIDT, ADIF, FRT4, B12, ABC #### [facility] [address] [place] [address] COCAINE Not detected [facility]. Comment on above: Performed By: #### T SH, MCMP, T3R, VIDT, ADIF, FRT4, B12, ABC #### [facility] [address] [place] [address] ETHANOL, URINE Not detected [facility]. Comment on above: Performed By: #### T SH, MCMP, T3R, VIDT, ADIF, FRT4, B12, ABC #### [facility] [address] [place] [address] FENTANYL Not detected [facility]. Comment on above: Performed By: #### T SH, MCMP, T3R, VIDT, ADIF, FRT4, B12, ABC #### [facility] [address] [place] [address] METHADONE Not detected [facility]. Comment on above: Performed By: #### T SH, MCMP, T3R, VIDT, ADIF, FRT4, B12, ABC #### [facility] [address] [place] [address] OPIATE Positive [facility]. Comment on above: Performed By: #### T SH, MCMP, T3R, VIDT, ADIF, FRT4, B12, ABC #### [facility] [address] [place] [address] OXYCODONE Not detected [facility]. Comment on above: Performed By: #### T SH, MCMP, T3R, VIDT, ADIF, FRT4, B12, ABC #### [facility] [address] [place] [address] PCP Not detected [facility]. Comment on above: Performed By: #### T SH, MCMP, T3R, VIDT, ADIF, FRT4, B12, ABC #### [facility] [address] [place] [address] PROPOXYPHENE Not detected [facility] Comment on above: Performed By: #### T SH, MCMP, T3R, VIDT, ADIF, FRT4, B12, ABC #### [facility] [address] [place] [address] TCA Not detected [facility] Comment on above: Performed By: #### T SH, MCMP, T3R, VIDT, ADIF, FRT4, B12, ABC #### [facility] [address] [place] [address] THC Not detected [facility] Comment on above: Performed By: #### T SH, MCMP, T3R, VIDT, ADIF, FRT4, B12, ABC #### [facility] [address] [place] [address] NOTE: [facility] Comment on above: Result Comment: The results of this drug screen are intended for use in medical applications only. They are not intended or suitable for use in forensic applications. Other related areas such as pre-employment require a confirmatory test if positive. Results are reported as positive if they are above the following concentrations: Amphetamines 1000 ng/mL Barbiturates 300 ng/ml Benzodiazepines 300 ng/mL Buprenorphine 5 ng/mL Cocaine (Benzoylecgonine) 300 ng/mL Ethanol 20 mg/dL Fentanyl 1 ng/mL Methadone 300 ng/mL Opiates 300 ng/mL Oxycodone 100 ng/mL PCP 25 ng/mL Propoxyphene 300 ng/mL Tricyclic Antidepressants 300 ng/mL THC 50 ng/mL Performed By: #### T SH, MCMP, T3R, VIDT, ADIF, FRT4, B12, ABC #### [facility] [address] [place] [address] Encounters Encounter Date Encounter Type Care Provider Facility Start: 10-07-2023 End: 10-07-2023 [facility] Start: 10-05-2023 ambulatory POOLDIANNA URIBE [facility] Start: 09-20-2023 End: 09-21-2023 ambulatory [facility] Start: 09-12-2023 End: 09-15-2023 ambulatory POOL Wang [facility] Start: 09-12-2023 Encounter for other preprocedural examination [facility] Felipe [facility] Payers Date Payer Category Payer Private Health Insurance [id number] Summary Purpose Family History No Family History Records FoundNo Family History Records Found Advance Directives No Advanced Directives Records FoundNo Advanced Directives Records Found Additional Source Comments INFORMATION SOURCE (unrecogn ized section and content) DATE CREATED AUTHOR [facility]/2021 [facility] DATE CREATED AUTHOR AUTHOR'S ORGANIZ ATION 10/08/2023 [facility] FOR RECORDS PERTAINING TO PATIENTS WHO ARE OR HAVE BEEN ENROLLED IN A CHEMICAL DEPENDENCY/SUBSTANCEABUSE PROGRAM, SOME INFORMATION MAY BE OMITTED. This clinical summary was aggregated from multiple sources. Caution should be exercised in using it in the provision of clinical care. This summary normalizes information from multiple sources, and as a consequence, information in this document may materially change the coding, format and clinical context of patient data. In addition, data may be omitted in some cases. CLINICAL DECISIONS SHOULD BE BASED ON THE PRIMARY CLINICAL RECORDS. [employer] [facility]. provides no warranty or guarantee of the accuracy or completeness of information in this document.
[2024-08-27 15:59] LABS: Thyroid Stimulating Hormone 2.325 uIU/mL (0.358-3.740)
== END 2024-08-27 14:19 | disposition home or self-care (01) ==
DX: E03.9 Hypothyroidism, unspecified (principal)
CPT/HCPCS: 36415; 84443

== ENCOUNTER 2024-08-27 14:26 | Outpatient (OUT) | payer MEDICARE, SELFPAY ==
[2024-08-27 15:44] LABS: Calcium 9.2 mg/dL (8.5-10.1)
[2024-08-28 10:08] LABS: PTH, Intact 35 pg/mL (15-65)
== END 2024-08-27 14:27 | disposition home or self-care (01) ==
DX: E03.9 Hypothyroidism, unspecified (principal); E21.0 Primary hyperparathyroidism; E55.9 Vitamin D deficiency, unspecified
CPT/HCPCS: 36415; 82306; 82310; 83970; 84443

== ENCOUNTER 2025-05-17 15:59 | Outpatient (OUT) | payer MEDICARE, SELFPAY ==
--- OUTSIDE RECORDS SUMMARY | 2025-02-09 04:00 | XMS_ITS ---
Author Organization [facility] Address [address] [address] Care Team Providers Care Roundhouse Supervisor Name Role Phone Migration, Provider Unavailable Unavailable REASON FOR VISIT EMR-Oswaldo Encounters Encounter Location Date Provider Diagnosis [facility] [address] [address] 02/09/2025 Provider Migration Plan Of Treatment No Information Progress Notes * JAXON MANCILLADIANB: [birth year] (65 yo F)Acc No.[id number]:02/09/2025 Patient:?GLADIS MANCILLA :1960???Age:64 Y???Sex:FemalePhone:Address:[address] [place] [address], [id number] Subjective: * Chief Complaints: * E MR-Oswaldo * * Date:?
--- OUTSIDE RECORDS SUMMARY | 2025-02-10 04:00 | XMS_ITS ---
Author Organization [facility] Address [address] [place] [phone] Care Team Providers Care Drug Safety Assistant Name Role Phone Migration, Provider Unavailable Unavailable Allergies Allergen (clinical drug ingredient) Drug/Non Drug Allergy documented on EMR Reaction Allergy Type Onset Date Status Information temporarily unavailable Sulfa (Sulfonamide Antibiotics) (uncoded) Unknown Allergy Active REASON FOR VISIT EMR-Oswaldo Medications Medication SIG (Take, Route, Frequency, Duration) Notes Start Date End Date Status Paxlovid (EUA) oral *Reorder from [facility] for eRx and Interaction Alerts* 05/03/2022 ActiveSuboxone*[facility]*ActivepredniSONEoral *[facility]*05/03/2022ctiveAzithromycinoral*[facility]*05/03/2022ctiveLevothyroxine*[facility]*Active Social History Social History Additional DetailsCategorySocial InfoOptionsDetailsMigrated Social History Migrated Social HistorySmoking Status : Current every day smoker. , History of tobacco use : Current every day smoker Encounters Encounter Location Date Provider Diagnosis [facility] [address] [address] 2025 Provider Migration Plan Of Treatment No Information Progress Notes * JAXON MANCILLANAYELY: [birth year] (65 yo F)Acc No.[id number] Patient:?GLADIS MANCILLA :1960???Age:65 Y???Sex:FemalePhone:Address:[address] [place], [place] [address], [place], [address] Subjective: * Chief Complaints: * E MR-Oswaldo * Social History: ???Migrated Social History:?Migrated Social History: Smoking Status : Current every day smoker. , History of tobacco use : Current every day smoker. * Medications: T akingLevothyroxine , Notes to Pharmacist: *Reorder from [facility] for eRx and Interaction Alerts*Azithromycin oral , Notes to Pharmacist: *Pick strength-form from [facility] for eRX*predniSONE oral , Notes to Pharmacist: *Pick strength-form from [facility] for eRX*Suboxone , Notes to Pharmacist: *Pick strength-form from [facility] for eRX*Paxlovid (EUA) oral , Notes to Pharmacist: *Reorder from [facility] for eRx and Interaction Alerts*Taking Levothyroxine , Notes to Pharmacist: *Reorder from [facility] for eRx and Interaction Alerts*Taking Azithromycin oral , Notes to Pharmacist: *Pick strength-form from [facility] for eRX*Taking predniSONE oral , Notes to Pharmacist: *Pick strength-form from [facility] for eRX*Taking Suboxone , Notes to Pharmacist: *Pick strength-form from [facility] for eRX*Taking Paxlovid (EUA) oral , Notes to Pharmacist: *Reorder from [facility] for eRx and Interaction Alerts* * Allergies: S ulfa (Sulfonamide Antibiotics): Allergy * * Date:?
--- OUTSIDE RECORDS SUMMARY | 2025-05-17 16:15 | XMS_ITS | Patient Health Record ---
Author Organization [facility] Address [address] [address] Care Team Providers Care Black Off Worker Name Role Phone Migration, Provider Unavailable Unavailable Reason For Referral No Information Medications Medication SIG (Take, Route, Frequency, Duration) Notes Start Date End Date Status Paxlovid (EUA) [facility]* 05/03/2022 ActiveSubox[facility]*ActivepredniSONEoral *[facility]*05/03/2022ctiveAzithromycinoral*Pick strength-form from [facility] for eRX*05/03/2022ctiveLevothyroxine*[facility]*Active Social History Social History Additional DetailsCategorySocial InfoOptionsDetailsMigrated Social History Migrated Social HistorySmoking Status : Current every day smoker. , History of tobacco use : Current every day smoker Encounters Encounter Location Date Provider Diagnosis [facility] [address] [place] [phone] 02/09/2025 Provider Migration [facility] [address] [phone]/Provider Migration Plan Of Treatment No Information
--- OUTSIDE RECORDS SUMMARY | 2025-05-17 16:15 | XMS_ITS | Clinical Summary ---
Author Organization [facility] [employer] [facility] Address [address] [place] [address] Care Team Providers Care Installation Manager Name Role Phone Unavailable Primary Care Provider Unavailabl e Social History Tobacco UseTypesPacks/DayYears UsedDateSmoking Tobacco: Never Assessed CommentsUnknownSex and Gender InformationValueDate RecordedSex Assigned at Not on fileLegal BwzBwjrwn59/02/2022 1:43 PM ESTGender IdentityNot on fileSexual OrientationNot on file Plan of Treatment Not on file Medical Devices Not on file
[2025-05-17 16:34] LABS: Calcium 9.5 mg/dL (8.5-10.1)
--- OUTSIDE RECORDS SUMMARY | 2025-05-17 17:54 | XMS_ITS | CCD ---
Author Organization [facility] Care Team Providers Care Commercial Glazier Name Role Phone RONY, POOL D Attending Unavailable RONY, POOL D Primary Care Unavailable RONY, POOL D Referring Unavailable RONY, POOL D Primary Care Unavailable NURSE, [facility] L [facility] STR[facility] Attending Unavailable SELF, REFERRAL Referring Unavailable RONY, POOL D Primary Care Unavailable RONY, POOL D Attending Unavailable RONY, POOL D Referring Unavailable RONY, POOL D Primary Care Unavailable ASHWINI CERVANTES Attending Unavailable RONY, POOL D Referring Unavailable RONY, POOL D Primary Care Unavailable Problems Problem ClassificationProblemDateDocumented DateEpisodic/ChronicDisorders of lipid metabolism (1 source)Hyperlipidemia, unspecified; Translations: [Hyperlipidemia, unspecified]Onset: 68-43-9861SoaqbooYmpfvlyqnaj (1 source)Unspecified hemorrhoids; Translations: [Unspecified hemorrhoids]Onset: 99-88-7412BnfhrscfQwtoxltmqmw deficiencies (1 source)Mild protein-calorie malnutrition; Translations: [Mild protein-calorie malnutrition ([facility])]Onset: 78-70-6213AbeuwkuBwcnjzwbafjp (1 source)Age-related osteoporosis without current pathological fracture; Translations: [Age-related osteoporosis without current pathological fracture] Onset: 49-73-2162YcelexzMvovb and ill-defined heart disease (1 source)Cardiomegaly; Translations: [Cardiomegaly]Onset: 46-51-5830Yvakkiy Other and unspecified benign neoplasm (1 source)Benign neoplasm of parathyroid gland; Translations: [Benign neoplasm of parathyroid gland]Onset: 76-12-2463KgbkqyyjOfgzg endocrine disorders (1 source)Hyperparathyroidism, unspecified; Translations: [Hyperparathyroidism, unspecified ([facility])]Onset: 28-93-9439DvlnkjhUikjs nervous system disorders (1 source)Other specified mononeuropathies; Translations: [Other specified mononeuropathies]Onset: 73-06-6298YsnhxojXwqcc nervous system disorders (1 source)Other chronic pain; Translations: [Other chronic pain]Onset: 69-80-2533VdqccamKsoiu screening for suspected conditions (not mental disorders or infectious disease) (2 sources)Abnormal electrocardiogram [ECG] [EKG]; Translations: [Encounter for screening mammogram for malignant neoplasm of breast]Onset: 37-90-0007Kvmiypoa Substance-related disorders (1 source)Nicotine dependence, unspecified, uncomplicated; Translations: [Nicotine dependence, unspecified, uncomplicated]Onset: 66-39-6941Nrhriee Results Test NameValueInterpretationReference RangeFacilityCBC WITH DIFFon 09-20-2023 Erythrocyte distribution width (RBC) [Ratio]12.9 %Qravjx34.5-14.0WhPleasant Valley Hospitalomment on above:Performed By: #### [id number] #### [facility] [address] [place] [address] USHematocrit (Bld) [Volume fraction]42.0 %Jxyqzz71.0-48.0 [facility] Hospitalomment on above:Performed By: #### [id number] #### [facility] [address] [place] [address] USHemoglobin (Bld) [Mass/Vol]14.1 g/iCUfrpje60.6-14.8WhPleasant Valley Hospitalomment on above:Performed By: #### [id number] #### [facility] [address] [place] [address] USH (RBC) [Entitic mass]30.9 ylJfcwrq89.4-34.0WhPleasant Valley Hospitalomment on above:Performed By: #### [id number] #### [facility] [address] [place] [address] USHC (RBC) [Mass/Vol]33.7 g/lQDqohfs34.0-37.0[facility] WVUComment on above:Performed By: #### [id number] #### [facility] 1 [facility] [place] [address] USMCV (RBC) [Entitic vol]91.8 dKItnfsg68.0-100.0[facility] Memorial HospitalUComment on above:Performed By: #### [id number] #### [facility] 1 [facility] [place] [address] USPlatelet mean volume (Bld) [Entitic vol]8.6 fLNormal 7.5-11.5P[facility] Memorial HospitalUComment on above:Performed By: #### [id number] #### [facility] 1 [facility] [place] [address] USPLATELETS [id number] x10???3/xGYbigzz601-304Hshalpjq Hospital WVUComment on above:Performed By: #### [id number] #### [facility] 1 [facility] [place] [address] USRBC AUTOMATED4.57 x10???6/uLNormal3.50-5.50[facility] Memorial Hospitalomment on above:Performed By: #### [id number] #### [facility] 1 [facility] [place] [address] USWBC AUTOMATED CORRECTED4.4 x10???3/uLLow4.5-11.5WhPleasant Valley Hospitalomment on above:Performed By: #### [id number] #### [facility] 1 [facility] [place] [address] USCOMPREHENSIVE METABOLIC PNL, FASTINGon 75-17-8621Dhtfraj [Mass/Vol]4.2 g/dLNormal3.5-5.0[facility] Memorial Hospitalomwalter p. [facility] on above:Performed By: #### [id number] #### [facility] [address] [place] [address] USAlbumin/Globulin [Mass ratio]1.6 {ratio}Normal1.5-2.5 [facility] WVUComment on above:Performed By: #### [id number] #### [facility] [address] [place] [address] USALP [Catalytic activity/Vol]76 U/IYhivhl97-711Ibmunvej Hospital WVUComment on above:Performed By: #### [id number] #### [facility] [address] [place] [address] USALT [Catalytic activity/Vol]41 U/LHigh<35WhPleasant Valley Hospital WVUComment on above:Performed By: #### [id number] #### [facility] 1 [facility] [place] [address] USAnion gap [Moles/Vol]7 mmol/LNormal5-19WhPleasant Valley Hospital WVUComment on above:Performed By: #### [id number] #### [facility] 1 [place] [address] USAST [Catalytic activity/Vol]48 U/GDags71-20Bljpmsph Hospital WVUComment on above:Performed By: #### [id number] #### [facility] 1 [place] [address] USBilirubin [Mass/Vol]0.3 mg/dLNormal0.2-1.3WhUnited Hospital CenterVUComment on above:Performed By: #### [id number] #### [facility] [address] [place] [address] USCalcium [Mass/Vol]10.8 mg/dLHigh8.4-10.2Poc[facility]ont[facility] Memorial HospitalVUComment on above:Performed By: #### [id number] #### [facility] 1 [place] [address] USChloride [Moles/Vol]102 mmol/MTqygeo37-668Cjwsynzr Hospital WVUComment on above:Performed By: #### [id number] #### [facility] 1 [place] [address] USCO2 [Moles/Vol]29 mmol/FUhjmuy72-34DnfzcvjvWetzel County Hospital Comment on above:Performed By: #### [id number] #### [facility] 1 [place] [address] USCreatinine [Mass/Vol]0.73 mg/dLNormal0.52-1.00P[facility] Memorial HospitalUComment on above:Performed By: #### [id number] #### [facility] 1 [place] [address] USGFR/1.73 sq M.predicted MDRD (S/P/Bld) [Vol rate/Area] mL/min/{1.73_m2}Normal>60WhOhio Valley Medical CenterUComment on above:Performed By: #### [id number] #### [facility] 1 [place] [address] USGlucose [Mass/Vol]107 mg/nJJfyp63-807Bjocxdcm Hospital W[place]U Comment on above:Performed By: #### [id number] #### [facility] 1 [place] [address] USNarrativeEstimated Glomerular Filtration Rate (eGFR) is calculated using the CKD-EPI (2020) equation, intended for patients 18 years of age and older. If gender is not documented or unknown , there will be no eGFR calculation.AbnormalWhOhio Valley Medical CenterUComment on above:Performed By: #### [id number] #### [facility] [address] [place] [address] USPotassium [Moles/Vol]4.3 mmol/LNormal3.5-5.1P[facility]ont[facility] Memorial HospitalUComment on above:Performed By: #### [id number] #### [facility] [address] [place] [address] USProtein [Mass/Vol]6.9 g/dLNormal6.3-8.2P[facility] Memorial HospitalUComment on above:Performed By: #### [id number] #### [facility] [address] [place] [address] USSodium [Moles/Vol]138 mmol/QInvfwf349-891Ghncqjpp Hospital WVUComment on above:Performed By: #### [id number] #### [facility] 1 [facility] [place] [address] USUrea nitrogen [Mass/Vol]35 mg/dLHigh7-17WhOhio Valley Medical CenterUComment on above:Performed By: #### [id number] #### [facility] 1 [facility] [place] [address] USUrea nitrogen/Creatinine [Mass ratio]48 mg/mgHigh6-20 [facility] Memorial HospitalUComment on above:Performed By: #### [id number] #### [facility] 1 [facility] [place] [address] USLIPID PANELon 80-00-3772Onfxqnmjhho [Mass/Vol]168 mg/dL Normal0-200WhPleasant Valley Hospitalomment on above:Performed By: #### [id number] #### [facility] 1 [facility] [place] [address] USCholesterol in HDL [Mass/Vol]73 mg/dLNormal>40P[facility] Memorial HospitalUComment on above:Performed By: #### [id number] #### [facility] 1 [place] [address] USCholesterol in LDL [Mass/Vol]79 mg/dLNormal<100P[facility] Memorial HospitalUComment on above:Performed By: #### [id number] #### [facility] 1 [facility] [place] [address] USTriglyceride [Mass/Vol]79 mg/dLNormal<150WhOhio Valley Medical CenterUComment on above:Performed By: #### [id number] #### [facility] 1 [place] [address] USMANUAL DIFFERENTIALon 39-12-4075KQBDWDBG % MANUAL2 %High0-1 [facility] Memorial HospitalUComment on above:Performed By: #### [id number] #### [facility] 1 [facility] [place] [address] USBASOPHIL ABSOLUTE COUNT 10*3/UL BY MANUAL COUNT0.09 x10???3/uLNormal0.00-0.20Williamson Memorial Hospitalomment on above:Performed By: #### [id number] #### [facility] 1 [facility] [place] [address] USEOSINOPHIL % MANUAL3 %Normal0-4WhPleasant Valley Hospitalomment on above:Performed By: #### [id number] #### [facility] 1 [facility] [place] [address] USEOSINOPHIL ABSOLUTE COUNT 10*3/UL BY MANUAL COUNT0.13 x10???3/uLNormal0.00-0.60[facility] Memorial Hospitalomment on above:Performed By: #### [id number] #### [facility] 1 [facility] [place] [address] USLYMPHOCYTE % IKFVLQ67 %Rdbx25-25SqwdyolhOhio Valley Medical CenterU Comment on above:Performed By: #### [id number] #### [facility] 1 [facility] [place] [address] USLYMPHOCYTE ABSOLUTE COUNT 10*3/UL BY MANUAL COUNT2.16 x10???3/uLNormal1.10-3.80[facility] Memorial Hospitalomment on above:Performed By: #### [id number] #### [facility] 1 [facility] [place] [address] USMONOCYTE % FZWJGC34 %High0-10WhPleasant Valley Hospitalomment on above:Performed By: #### [id number] #### [facility] 1 [place] [address] USMONOCYTE ABSOLUTE COUNT 10*3/UL BY MANUAL COUNT0.66 x10???3/uLNormal0.10-0.80Williamson Memorial Hospitalomment on above:Performed By: #### [id number] #### [facility] 1 [facility] [place] [address] USNEUTROPHIL % PWFJNE73 %Xpj54-88SkygkzpaPocahontas Memorial HospitalUComment on above:Performed By: #### [id number] #### [facility] 1 [facility] [place] [address] USNEUTROPHIL ABSOLUTE COUNT 10*3/UL BY MANUAL COUNT1.36 x10???3/uLLow1.80-7.50P[facility]ont[facility] Memorial HospitalUComment on above:Performed By: #### [id number] #### [facility] 1 [facility] [place] [address] USPLATELET ESTIMATEAdequateNoTeays Valley Cancer Centeromment on above:Performed By: #### [id number] #### [facility] 1 [facility] [place] [address] USPLATELET SATELLITOSISCabell Huntington HospitalUComment on above:Performed By: #### [id number] #### [facility] 1 [facility] [place] [address] USRBC MORPHOLOGY COMMENTNoCabell Huntington Hospital Comment on above:Performed By: #### [id number] #### [facility] 1 [facility] [place] [address] USWBC MORPHOLOGY COMMENTNoCabell Huntington Hospital Comment on above:Performed By: #### [id number] #### [facility] 1 [facility] [place] [address] USWBC PULL AUTOMATED CORRECTED4.4 x10???3/uLNoMinnie Hamilton Health CenterUComment on above:Performed By: #### [id number] #### [facility] 1 [facility] [place] [address] USPTH INTACT W/O CALCIUM (51385)on 17-98-3063IFM INTACT W/O CALCIUM (70202)PTH INTACT 101 (NOTE) Interpretive Guide Intact PTH Calcium ------- Normal Parathyroid Normal Normal Hypoparathyroidism Low or Low Normal Low Hyperparathyroidism Primary Normal or High High Secondary High Normal or Low Tertiary High High Non-Parathyroid Hypercalcemia Low or Low Normal High Test performed at [address] [address] Director: PRANAY CARVER MDVZTtbv24-84Mufopxls11 Wade StreetComment on above: Performed By: #### TSH, MCMP, T3R, VIDT, ADIF, FRT4, B12, ABC #### [facility] [address] [place] [address] 41084QBFOWWYOIQXHN PANEL ROQUE INCLUDED (15839)on 07-16-2021 THYROGLOBULIN PANEL ROQUE INCLUDED (24999)ANTI THYROGLOBULIN AB 2 THYROGLOBULIN <0.1 (NOTE) Reference Range: Intact Thyroid 2.8-40.9 Athyrotic <0.1 Note: Abnormal flagging is based on the reference interval for patients with intact thyroid. This test was performed using the [employer] [place] chemiluminescent method. Values obtained from different assay methods cannot be used interchangeably. Thyroglobulin levels, regardless of value, should not be interpreted as absolute evidence of the presence or absence of disease. This specimen was found to contain anti-thyroglobulin antibodies. The presence of these autoantibodies may cause falsely low thyroglobulin values. In Tg-antibody positive patients the thyroglobulin by tandem mass spectrometry (test code 50012 - Thyroglobulin, LC/MS/MS; or panel test code 21523 - Thyroid Cancer (Thyroglobulin) Monitoring) test is recommended because it has no interference from autoantibodies. For additional information, please refer to http://education.[employer]/faq/TVF572 (This link is being provided for informational/ educational purposes only.) Test performed at [facility] [address] Director: PRANAY CARVER MDOgden Regional Medical CenterComment on above: Performed By: #### TSH, MCMP, T3R, VIDT, ADIF, FRT4, B12, ABC #### [facility] [address] [place] [address] 22406KNKKCJYKZ BLOOD COUNTon 13-43-4482Pncjeisapte distribution width (RBC) [Ratio]13.2 %Hekyqj80.5-14.5W[facility]zel County HospitalComment on above: Performed By: #### TSH, MCMP, T3R, VIDT, ADIF, FRT4, B12, ABC #### [facility] [address] [place] [address] 33820Zdafgkcrpg (Bld) [Volume fraction]37.9 %Osdvzq35-50UvizierhWetzel County HospitalComment on above:Performed By: #### TSH, MCMP, T3R, VIDT, ADIF, FRT4, B12, ABC #### [facility] [address] [place] [address] 55169Iivadavgdw (Bld) [Mass/Vol]12.7 g/lCPdphgl35.0-15.0W[facility] County HospitalComment on above:Performed By: #### TSH, MCMP, T3R, VIDT, ADIF, FRT4, B12, ABC #### [facility] [address] [place] [address] 49523LQR (RBC) [Entitic mass]29.7 fsObvbrk13.4-34.6W[facility] County HospitalComment on above:Performed By: #### TSH, MCMP, T3R, VIDT, ADIF, FRT4, B12, ABC #### [facility] [address] [place] [address] 20194YMKJ (RBC) [Mass/Vol]33.5 g/aDGutmck03-47LrdtwnwjWetzel County HospitalComment on above:Performed By: #### TSH, MCMP, T3R, VIDT, ADIF, FRT4, B12, ABC #### [facility] [address] [place] [address] 67210OIB (RBC) [Entitic vol]88.5 uZVpiwrf89-12OdathhdhWetzel County HospitalComment on above:Performed By: #### TSH, MCMP, T3R, VIDT, ADIF, FRT4, B12, ABC #### [facility] [address] [place] [address] 82482Dcwakbzdc (Bld) [#/Vol]243 10*3/pWAnbvck130-897Bbrjrlus [facility].Comment on above:Performed By: #### TSH, MCMP, T3R, VIDT, ADIF, FRT4, B12, ABC #### [facility] [address] [place] [address] 80050UOA (Bld) [#/Vol]4.29 10*6/uLNormal3.5-5.5W[facility] County HospitalComment on above:Performed By: #### TSH, MCMP, T3R, VIDT, ADIF, FRT4, B12, ABC #### [facility] [address] [place] [address] 28182THP (Bld) [#/Vol]7.6 10*3/uLNormal4.5-11.5W[facility] County HospitalComment on above:Performed By: #### TSH, MCMP, T3R, VIDT, ADIF, FRT4, B12, ABC #### [facility] [address] [place] [address] 61164CHHA METABOLIC PANELon 90-25-6113Gwjlihn [Mass/Vol]4.3 g/dL Normal3.5-5.0[facility].Comment on above:Performed By: #### TSH, MCMP, T3R, VIDT, ADIF, FRT4, B12, ABC #### [facility] [address] [place] [address] 55966Uiczpob/Globulin [Mass ratio]1.4 {ratio}Low1.5-2.5W[facility] County HospitalComment on above:Performed By: #### TSH, MCMP, T3R, VIDT, ADIF, FRT4, B12, ABC #### [facility] [address] [place] [address] 28408DIL PHOS82 U/RNxykbe52-788MsvdvwluWetzel County HospitalComment on above:Performed By: #### TSH, MCMP, T3R, VIDT, ADIF, FRT4, B12, ABC #### [facility] 1 [place], [place] [address]HYF [Catalytic activity/Vol]22 U/LNormal<35W[facility] County HospitalComment on above:Performed By: #### TSH, MCMP, T3R, VIDT, ADIF, FRT4, B12, ABC #### [facility] 1 [place], [place] [address]Daltf gap [Moles/Vol]10 mmol/LNormal5-19W[facility] County HospitalComment on above:Performed By: #### TSH, MCMP, T3R, VIDT, ADIF, FRT4, B12, ABC #### [facility] 1 [place], [place] [address]SVZ [Catalytic activity/Vol]34 U/REyutxv05-77NewamyuzWetzel County HospitalComment on above:Performed By: #### TSH, MCMP, T3R, VIDT, ADIF, FRT4, B12, ABC #### [facility] [address] [place] [address] 55381Fgsudmbfh [Mass/Vol]0.4 mg/dLNormal0.2-1.3[facility].Comment on above:Performed By: #### TSH, MCMP, T3R, VIDT, ADIF, FRT4, B12, ABC #### [facility] [address] [place] [address] 21172Kvfckyv [Mass/Vol]10.4 mg/dLHigh8.4-10.2W[facility] County HospitalComment on above:Performed By: #### TSH, MCMP, T3R, VIDT, ADIF, FRT4, B12, ABC #### [facility] [address] [place] [address] 39349Ntlxwfmq [Moles/Vol]101 mmol/ITvofka54-346HrqopmifWetzel County HospitalComment on above:Performed By: #### TSH, MCMP, T3R, VIDT, ADIF, FRT4, B12, ABC #### [facility] [address] [place] [address] 15493GG5 [Moles/Vol]28 mmol/JDfnusj70-19ZgwdoxvqWetzel County Hospital Comment on above:Performed By: #### TSH, MCMP, T3R, VIDT, ADIF, FRT4, B12, ABC #### [facility] [address] [place] [address] 46659Nhhegyysta [Mass/Vol]0.69 mg/dLNormal0.52-1.04W[facility] County HospitalComment on above:Performed By: #### TSH, MCMP, T3R, VIDT, ADIF, FRT4, B12, ABC #### [facility] [address] [place], [place] [address]rRMG AM.>60Normal>60W[facility] County HospitalComment on above:Performed By: #### TSH, MCMP, T3R, VIDT, ADIF, FRT4, B12, ABC #### [facility] [address] [place] [address] 63159vTAF NON AM.>60Normal>60W[facility] County HospitalComment on above:Performed By: #### TSH, MCMP, T3R, VIDT, ADIF, FRT4, B12, ABC #### [facility] [address] [place] [address] 84854Qrwnjha [Mass/Vol]110 mg/sJGoxn88-022FyshozoiWetzel County Hospital Comment on above:Performed By: #### TSH, MCMP, T3R, VIDT, ADIF, FRT4, B12, ABC #### [facility] [address] [place] [address] 11458Bwsnqotee [Moles/Vol]4.2 mmol/LNormal3.5-5.1W[facility] County HospitalComment on above:Performed By: #### TSH, MCMP, T3R, VIDT, ADIF, FRT4, B12, ABC #### [facility] [address] [place] [address] 78241Sabngjc [Mass/Vol]7.3 g/dLNormal6.3-8.2[facility] Comment on above:Performed By: #### TSH, MCMP, T3R, VIDT, ADIF, FRT4, B12, ABC #### [facility] [address] [place] [address] 65998Vhvkbn [Moles/Vol]139 mmol/AZbdvvx020-691PeeynieeWetzel County HospitalComment on above:Performed By: #### TSH, MCMP, T3R, VIDT, ADIF, FRT4, B12, ABC #### [facility] [address] [place] [address] 40796Rpmm nitrogen [Mass/Vol]29 mg/dLHealthsouth Rehabilitation Hospital7-17W[facility] County HospitalComment on above:Performed By: #### TSH, MCMP, T3R, VIDT, ADIF, FRT4, B12, ABC #### [facility] [address] [place] [address] 26730Gnoj nitrogen/Creatinine [Mass ratio]42.0 mg/mgHealthsouth Rehabilitation Hospital6-20 Wetzel County HospitalComment on above:Performed By: #### TSH, MCMP, T3R, VIDT, ADIF, FRT4, B12, ABC #### [facility] [address] [place] [address] 89280GPMWKMQLWAWHbl 12-47-7905BBVWZUES NEUTROPHILS DO NO3.9 K/UL Normal1.8-7.5W[facility] County HospitalComment on above:Performed By: #### TSH, MCMP, T3R, VIDT, ADIF, FRT4, B12, ABC #### [facility] [address] [place] [address] 50244Bzyopyxew (Bld) [#/Vol]0.1 10*3/uLNormal0-0.2W[facility] County HospitalComment on above:Performed By: #### TSH, MCMP, T3R, VIDT, ADIF, FRT4, B12, ABC #### [facility] [address] [place] [address] 17100Yffkhxcor/100 WBC (Bld)1.0 %Normal0.0-2.3W[facility] County HospitalComment on above:Performed By: #### TSH, MCMP, T3R, VIDT, ADIF, FRT4, B12, ABC #### [facility] [address] [facility], [place] [address]THNO THE SURGICAL HOSPITAL AT SOUTHWOODSAUTONoalWetzel County HospitalComment on above: Performed By: #### TSH, MCMP, T3R, VIDT, ADIF, FRT4, B12, ABC #### [facility] [address] [place], [place] [address]Rlgnyhxwctv (Bld) [#/Vol]0.3 10*3/uLNormal0-0.6W[facility] HospitalComment on above:Performed By: #### TSH, MCMP, T3R, VIDT, ADIF, FRT4, B12, ABC #### [facility] [address] [place], [place] [address]Dcblusdcwna/100 WBC (Bld)3.9 %Normal0.1-4.5[facility] HospitalComment on above:Performed By: #### TSH, MCMP, T3R, VIDT, ADIF, FRT4, B12, ABC #### [facility] [address] [place], [place] [address]Yjbwhqdtchl (Bld) [#/Vol]2.5 10*3/uLNormal1.1-3.8[facility] HospitalComment on above:Performed By: #### TSH, MCMP, T3R, VIDT, ADIF, FRT4, B12, ABC #### [facility] [address] [place], [place] [address]Jnkgndmhxfc/100 WBC (Bld)33.3 %Lgftag24.5-46.9[facility] HospitalComment on above:Performed By: #### TSH, MCMP, T3R, VIDT, ADIF, FRT4, B12, ABC #### [facility] [address] [place], [place] [address]Ggwgynyfn (Bld) [#/Vol]0.8 10*3/uLNormal0.1-0.8[facility] HospitalComment on above:Performed By: #### TSH, MCMP, T3R, VIDT, ADIF, FRT4, B12, ABC #### [facility] [address] [place] [address]Frqokpvpf/100 WBC (Bld)10.8 %Normal4.2-12.4W[facility]zel County HospitalComment on above:Performed By: #### TSH, MCMP, T3R, VIDT, ADIF, FRT4, B12, ABC #### [facility] [address] [place] [address] 46051Swgrllsaunh/100 WBC (Bld)51.0 %Napelv19.3-69.5W[facility]zel County HospitalComment on above:Performed By: #### TSH, MCMP, T3R, VIDT, ADIF, FRT4, B12, ABC #### [facility] [address] [place] [address] 87543WJ 25 VITAMIN D TOTALon 28-30-8267XU 25 VITAMIN D TOTAL39 ng/mMVokxoc38-905QkwtptmtWetzel County HospitalComment on above:Result Comment: Reference Values: DEFICIENT <20 ng/mL INSUFFICIENT 20 to <30 ng/mL SUFFICIENT 30 to 100 ng/mL POTENTIAL TOXICITY >100 ng/mLPerformed By: #### TSH, MCMP, T3R, VIDT, ADIF, FRT4, B12, ABC #### [facility] [address] [place] [address] 24272M9,FREEon 83-34-9623Mbwp T4 [Mass/Vol]1.75 ng/dLNormal 0.78-2.19W[facility] County HospitalComment on above:Performed By: #### TSH, MCMP, T3R, VIDT, ADIF, FRT4, B12, ABC #### [facility] [address] [place] [address] 47066WKIXI T3on 50-32-8627RISEN T31.29 ng/mLNormal0.970-1.69 [facility] HospitalComment on above:Performed By: #### TSH, MCMP, T3R, VIDT, ADIF, FRT4, B12, ABC #### [facility] [address] [place], [place] [address]WVU, 3RD GENERATIONon 05-13-9689BWA, 3RD GENERATION0.034 mIU/L Low0.465-4.68W[facility] County HospitalComment on above:Performed By: #### TSH, MCMP, T3R, VIDT, ADIF, FRT4, B12, ABC #### [facility] [address] [place], [place] [address]TIMWKZA B12on 61-82-1679Tborqcwpc (Vitamin B12) [Mass/Vol]824 pg/bXSufsey454-615[facility]Comment on above:Performed By: #### TSH, MCMP, T3R, VIDT, ADIF, FRT4, B12, ABC #### [facility] [address] [place], [place] [address]GWCACFO CONFIRMATION (32345)on 24-93-6393CGUKBCS CONFIRMATION (68724)CODEINE NEGATIVE (NOTE) See Note 1 MORPHINE >46413 (NOTE) See Note 1 HYDROCODONE NEGATIVE (NOTE) See Note 1 HYDROMORPHONE 497 (NOTE) See Note 1 OXYCODONE NEGATIVE (NOTE) See Note 1 OXYMORPHONE NEGATIVE (NOTE) See Note 1 NORHYDROCODONE NEGATIVE (NOTE) See Note 1 NOROXYCODONE NEGATIVE (NOTE) See Note 1 NOTE SEE NOTE (NOTE) See Note 2 Note 1 This test was developed and its analytical performance characteristics have been determined by [employer]. It has not been cleared or approved [...] interpreting these drug results, please contact a [facility] Toxicology Specialist: [phone] TOX ( ), M-F, 8am-6pm EST. Test performed at [facility] [address] Director: Marissa RODRIGUEZFairmont Regional Medical Center.Comment on above: Performed By: #### TSH, MCMP, T3R, VIDT, ADIF, FRT4, B12, ABC #### [facility] [address] [place] [address] 20817EED INTACT W/O CALCIUM (36447)on 16-24-2767UIW INTACT W/O CALCIUM (52276)PTH INTACT 112 (NOTE) Interpretive Guide Intact PTH Calcium ------- Normal Parathyroid Normal Normal Hypoparathyroidism Low or Low Normal Low Hyperparathyroidism Primary Normal or High High Secondary High Normal or Low Tertiary High High Non-Parathyroid Hypercalcemia Low or Low Normal High Test performed at [facility] [address] [address] Director: PRANAY CARVER MDRZNbdz18-45PdayaeytWetzel County HospitalComment on above: Performed By: #### TSH, MCMP, T3R, VIDT, ADIF, FRT4, B12, ABC #### [facility] [address] [place] [address] 03736F1Nph 10-89-3510GhL2u (Bld) [Mass fraction]5.2 %Normal4.0-6.0 [facility] County HospitalComment on above:Performed By: #### TSH, MCMP, T3R, VIDT, ADIF, FRT4, B12, ABC #### [facility] [address] [place] [address] 05962EGCRPKMZB BLOOD COUNTon 09-94-9108Cabpkglcehh distribution width (RBC) [Ratio]13.0 %Mumqtl49.5-14.5W[facility] County HospitalComment on above: Performed By: #### TSH, MCMP, T3R, VIDT, ADIF, FRT4, B12, ABC #### [facility] [address] [place] [address] 65981Okanpaotqu (Bld) [Volume fraction]39.2 %Deaxki50-30VtoskjyqWetzel County HospitalComment on above:Performed By: #### TSH, MCMP, T3R, VIDT, ADIF, FRT4, B12, ABC #### [facility] [address] [place] [address] 40990Zvkhmvbcmk (Bld) [Mass/Vol]13.1 g/cLHissso91.0-15.0W[facility] County HospitalComment on above:Performed By: #### TSH, MCMP, T3R, VIDT, ADIF, FRT4, B12, ABC #### [facility] [address] [place] [address] 11072IDF (RBC) [Entitic mass]29.8 xsSuwlio99.4-34.6W[facility] County HospitalComment on above:Performed By: #### TSH, MCMP, T3R, VIDT, ADIF, FRT4, B12, ABC #### [facility] [address] [place] [address] 08692DMKR (RBC) [Mass/Vol]33.3 g/yBCfnnxw37-83HyfnxrwkWetzel County HospitalComment on above:Performed By: #### TSH, MCMP, T3R, VIDT, ADIF, FRT4, B12, ABC #### [facility] [address] [place] [address] 58004GZF (RBC) [Entitic vol]89.3 aDVnywmz43-61AdmpjnocVeterans Affairs Medical Center.Comment on above:Performed By: #### TSH, MCMP, T3R, VIDT, ADIF, FRT4, B12, ABC #### [facility] [address] [place] [address] 22569Idepyekja (Bld) [#/Vol]210 10*3/wQWznjpa540-148Xqpmtjop [facility].Comment on above:Performed By: #### TSH, MCMP, T3R, VIDT, ADIF, FRT4, B12, ABC #### [facility] [address] [place] [address] 59894OUT (Bld) [#/Vol]4.39 10*6/uLNormal3.5-5.5W[facility] County HospitalComment on above:Performed By: #### TSH, MCMP, T3R, VIDT, ADIF, FRT4, B12, ABC #### [facility] [address] [place] [address] 27171SNO (Bld) [#/Vol]3.3 10*3/uLLow4.5-11.5[facility] Comment on above:Performed By: #### TSH, MCMP, T3R, VIDT, ADIF, FRT4, B12, ABC #### [facility] [address] [place] [address] 41389JGVC MINERAL DENSITY SCANon 49-98-9130RBFR MINERAL DENSITY [id number] Signs/Symptoms: [place] ID#[id number] History: SCREENING,HYPER CALCEMIA,HYPO THYROIDISM BONE MINERAL DENSITY SCAN CLINICAL HISTORY: Female, age 60 years. SCREENING,HYPER CALCEMIA,HYPO THYROIDISM. post menopausal screen for osteoporosis. . TECHNIQUE: DEXA scan of spine, dual hip COMPARISON: na FINDINGS: T-SCORES Lumbar spine: -3.1 (osteoporosis); Previously: na Left hip: -2.9 (osteoporosis); Previously: na Right hip: -3.2 (osteoporosis); Previously: na The T-scores are also available for review on [facility] PACS or by accessing the [facility] electronic medical record, [place]. IMPRESSION: OSTEOPOROSIS IS PRESENT IN THE LUMBAR SPINE AND IN BOTH HIPS Approved By: See Singer Electronically Signed On: 09/02/2020 14:05 by: See Singer Order Number: [id number] Hospital, Inc.Comment on above: Order Comment: PT SCHEDULED AND HAS ORDERS PREV [facility]...PT WILL TRY TO HAVE MAILED---COMP METABOLIC PANELon 92-33-0601Ozgqkdf [Mass/Vol]4.2 g/dLNormal 3.5-5.0W[facility] County HospitalComment on above:Performed By: #### TSH, MCMP, T3R, VIDT, ADIF, FRT4, B12, ABC #### [facility] [address] [place] [address] 51718Hxjmszr/Globulin [Mass ratio]1.5 {ratio}Normal1.5-2.5W[facility] County HospitalComment on above:Performed By: #### TSH, MCMP, T3R, VIDT, ADIF, FRT4, B12, ABC #### [facility] [address] [place], [place] [address]CGP PHOS62 U/MImyhvh85-620IuusxvcfWetzel County HospitalComment on above:Performed By: #### TSH, MCMP, T3R, VIDT, ADIF, FRT4, B12, ABC #### [facility] [address] [place], [place] [address]UUY [Catalytic activity/Vol]18 U/LNormal<35W[facility] HospitalComment on above:Performed By: #### TSH, MCMP, T3R, VIDT, ADIF, FRT4, B12, ABC #### [facility] [address] [place] [address] 17439Fkdlg gap [Moles/Vol]4 mmol/LLow5-19[facility] Comment on above:Performed By: #### TSH, MCMP, T3R, VIDT, ADIF, FRT4, B12, ABC #### [facility] [address] [place] [address] 16152YSB [Catalytic activity/Vol]28 U/NKbsypt79-76RpacuomuWetzel County HospitalComment on above:Performed By: #### TSH, MCMP, T3R, VIDT, ADIF, FRT4, B12, ABC #### [facility] [address] [place] [address] 96316Jbrcwqsww [Mass/Vol]0.3 mg/dLNormal0.2-1.3W[facility] HospitalComment on above:Performed By: #### TSH, MCMP, T3R, VIDT, ADIF, FRT4, B12, ABC #### [facility] [address] [place] [address] 83242Kusmbxl [Mass/Vol]10.8 mg/dLHigh8.4-10.2[facility] HospitalComment on above:Performed By: #### TSH, MCMP, T3R, VIDT, ADIF, FRT4, B12, ABC #### [facility] [address] [place], [place] [address]Qiqeuaxl [Moles/Vol]102 mmol/BKszstw88-235ZuaotahqWetzel County HospitalComment on above:Performed By: #### TSH, MCMP, T3R, VIDT, ADIF, FRT4, B12, ABC #### [facility] [address] [place], [place] [address]AJ4 [Moles/Vol]31 mmol/FQwlk00-26GxqmpsebWetzel County Hospital Comment on above:Performed By: #### TSH, MCMP, T3R, VIDT, ADIF, FRT4, B12, ABC #### [facility] [address] [place] [address] 75250Ehwscwtcec [Mass/Vol]0.64 mg/dLNormal0.52-1.04[facility] HospitalComment on above:Performed By: #### TSH, MCMP, T3R, VIDT, ADIF, FRT4, B12, ABC #### [facility] [address] [place] [address] 64683oNHH AM.>60Normal>60W[facility] HospitalComment on above:Performed By: #### TSH, MCMP, T3R, VIDT, ADIF, FRT4, B12, ABC #### [facility] [address] [place] [address] 63111pEAN NON AM.>60Normal>60W[facility] County HospitalComment on above:Performed By: #### TSH, MCMP, T3R, VIDT, ADIF, FRT4, B12, ABC #### [facility] [address] [place] [address] 70693Qkbdxpb [Mass/Vol]95 mg/uVXgyfgm06-715BnoaduhuWetzel County Hospital Comment on above:Performed By: #### TSH, MCMP, T3R, VIDT, ADIF, FRT4, B12, ABC #### [facility] [address] [place], [place] [address]Iygdroxia [Moles/Vol]4.5 mmol/LNormal3.5-5.1[facility].Comment on above:Performed By: #### TSH, MCMP, T3R, VIDT, ADIF, FRT4, B12, ABC #### [facility] [address] [place], [place] [address]Blqvdyr [Mass/Vol]7.0 g/dLNormal6.3-8.2[facility] Comment on above:Performed By: #### TSH, MCMP, T3R, VIDT, ADIF, FRT4, B12, ABC #### [facility] [address] [place] [address] 08069Emssnw [Moles/Vol]137 mmol/ITxgkxc719-052DuvzgjefWetzel County HospitalComment on above:Performed By: #### TSH, MCMP, T3R, VIDT, ADIF, FRT4, B12, ABC #### [facility] [address] [place] [address] 30924Bdvu nitrogen [Mass/Vol]16 mg/dLNormal7-17[facility].Comment on above:Performed By: #### TSH, MCMP, T3R, VIDT, ADIF, FRT4, B12, ABC #### [facility] [address] [place] [address] 91845Pavl nitrogen/Creatinine [Mass ratio]25.0 mg/mgHigh6-20 [facility] HospitalComment on above:Performed By: #### TSH, MCMP, T3R, VIDT, ADIF, FRT4, B12, ABC #### [facility] [address] [place] [address] 74080QXZLQOLIBWNVgd 22-19-7327ETACELGU SEGS1.5 K/ULLow1.8-7.5 [facility] HospitalComment on above:Performed By: #### TSH, MCMP, T3R, VIDT, ADIF, FRT4, B12, ABC #### [facility] [address] [place] [address] 38269Wmfoqpchk (Bld) [#/Vol]0.1 10*3/uLNormal0-0.2W[facility] County HospitalComment on above:Performed By: #### TSH, MCMP, T3R, VIDT, ADIF, FRT4, B12, ABC #### [facility] [address] [place], [place] [address]Jvgiuaotg/100 WBC (Bld)2 %High0-1[facility] Comment on above:Performed By: #### TSH, MCMP, T3R, VIDT, ADIF, FRT4, B12, ABC #### [facility] [address] [place], [place] [address]COQHAshley Regional Medical CenterComment on above: Performed By: #### TSH, MCMP, T3R, VIDT, ADIF, FRT4, B12, ABC #### [facility] [address] [place], [place] [address]Uayclklmezb (Bld) [#/Vol]0.2 10*3/uLNormal0-0.6[facility] HospitalComment on above:Performed By: #### TSH, MCMP, T3R, VIDT, ADIF, FRT4, B12, ABC #### [facility] [address] [place] [address] 84095Zphakiwnkas/100 WBC (Bld)5 %High0-4[facility]. Comment on above:Performed By: #### TSH, MCMP, T3R, VIDT, ADIF, FRT4, B12, ABC #### [facility] [address] [place], [place] [address]Bmitzqiriek (Bld) [#/Vol]1.2 10*3/uLNormal1.1-3.8[facility] HospitalComment on above:Performed By: #### TSH, MCMP, T3R, VIDT, ADIF, FRT4, B12, ABC #### [facility] [address] [place], [place] [address]Zousshbbywf/100 WBC (Bld)36 %Fmvshf74-72UfzsshlgWetzel County HospitalComment on above:Performed By: #### TSH, MCMP, T3R, VIDT, ADIF, FRT4, B12, ABC #### [facility] [address] [place] [address] 51612Ruvuzqnfg (Bld) [#/Vol]0.3 10*3/uLNormal0.1-0.8[facility] HospitalComment on above:Performed By: #### TSH, MCMP, T3R, VIDT, ADIF, FRT4, B12, ABC #### [facility] [address] [place] [address] 16404Gsxowsglv/100 WBC (Bld)9 %Normal0-10[facility] Comment on above:Performed By: #### TSH, MCMP, T3R, VIDT, ADIF, FRT4, B12, ABC #### [facility] [address] [place] [address] 22119SGMHWRVR ESTIMATEADEQUATJon Michael Moore Trauma CenterComment on above:Performed By: #### TSH, MCMP, T3R, VIDT, ADIF, FRT4, B12, ABC #### [facility] [address] [place] [address] 12961QDM morphology finding Nom (Bld)Jon [facility] Moore Trauma CenterComment on above:Performed By: #### TSH, MCMP, T3R, VIDT, ADIF, FRT4, B12, ABC #### [facility] [address] [place] [address] 60586RGQK58 %Szjlbo18-14FhqtwrimWetzel County HospitalComment on above: Performed By: #### TSH, MCMP, T3R, VIDT, ADIF, FRT4, B12, ABC #### [facility] [address] [place] [address] 37806XYNTTHIWYWO SCREENING TOMOSYNTHESISon [id number] SCREENING [id number] Signs/Symptoms: [place] ID#[id number] screening History: SCREENING,HYPER CALCEMIA,HYPO THYROIDISM MAMMOGRAPHY SCREENING [...] 09/08/2020 14:42 by: Chad Prado Order Number: [id number] [facility].Comment on above: Order Comment: [facility]EDUL[facility]PT WILL TRY TO HAVE MAILED- requested verified screening orders klrO 25 VITAMIN D TOTALon [id number] 25 VITAMIN D TOTAL34 ng/aHBwlhbz96-066RlwexoobWetzel County Hospital Comment on above:Result Comment: Reference Values: DEFICIENT <20 ng/mL INSUFFICIENT 20 to <30 ng/mL SUFFICIENT 30 to 100 ng/mL POTENTIAL TOXICITY >100 ng/mLPerformed By: #### TSH, MCMP, T3R, VIDT, ADIF, FRT4, B12, ABC #### [facility] [address] [place] [address] 96693J6,FREEon 50-48-3199Gpnm T4 [Mass/Vol]1.53 ng/dLNormal 0.78-2.19[facility].Comment on above:Performed By: #### TSH, MCMP, T3R, VIDT, ADIF, FRT4, B12, ABC #### [facility] [address] [place] [address] 53903EOLFH T3on 64-86-2566KRUXV T31.22 ng/mLNormal0.970-1.69 [facility] HospitalComment on above:Performed By: #### TSH, MCMP, T3R, VIDT, ADIF, FRT4, B12, ABC #### [facility] [address] [place], [place] [address]DJI, 3RD GENERATIONon 45-08-1856YBL, 3RD GENERATION0.104 mIU/L Low0.465-4.68[facility] County HospitalComment on above:Result Comment: Reference Ranges: First Trimester 0.26 to 2.66 mIU/L Second Trimester 0.55 to 2.73 mIU/L Third Trimester 0.43 to 2.91 mIU/LPerformed By: #### TSH, MCMP, T3R, VIDT, ADIF, FRT4, B12, ABC #### [facility] [address] [place] [address] 37196STVUO DRUG SCRN/RFLX CONFon 09-47-6979CTVCCSKCHTLDso [facility] SSDComment on above:Performed By: #### TSH, MCMP, T3R, VIDT, ADIF, FRT4, B12, ABC #### [facility] [address] [place] [address] 60122QJGHDEDCXWDJai [facility] HospitalComment on above:Performed By: #### TSH, MCMP, T3R, VIDT, ADIF, FRT4, B12, ABC #### [facility] [address] [place] [address] 23656PGKGVJSDZFSKSEMys [facility] HospitalComment on above:Performed By: #### TSH, MCMP, T3R, VIDT, ADIF, FRT4, B12, ABC #### [facility] [address] [place] [address] 85890RDUNEBGTVPYENCsr [facility] HospitalComment on above:Performed By: #### TSH, MCMP, T3R, VIDT, ADIF, FRT4, B12, ABC #### [facility] [address] [place] [address] 68557DEHJGPAJdk [facility] HospitalComment on above:Performed By: #### TSH, MCMP, T3R, VIDT, ADIF, FRT4, B12, ABC #### [facility] [address] [place] [address] 08810AXEEYFO, URINENot [facility].Comment on above:Performed By: #### TSH, MCMP, T3R, VIDT, ADIF, FRT4, B12, ABC #### [facility] [address] [place] [address] 98550AJPQBVKHTft [facility] HospitalComment on above:Performed By: #### TSH, MCMP, T3R, VIDT, ADIF, FRT4, B12, ABC #### [facility] [address] [place] [address] 86682TUKEQUMETLcb [facility] HospitalComment on above:Performed By: #### TSH, MCMP, T3R, VIDT, ADIF, FRT4, B12, ABC #### [facility] [address] [place] [address] 51017EHNQJKTybzkjrpMregssVeeagkoc Hospital, Inc.Comment on above: Performed By: #### TSH, MCMP, T3R, VIDT, ADIF, FRT4, B12, ABC #### [facility] [address] [place] [address] 64099ROKURRPBKHzi [facility] HospitalComment on above:Performed By: #### TSH, MCMP, T3R, VIDT, ADIF, FRT4, B12, ABC #### [facility] [address] [place] [address] 70299NGCVwt [facility] HospitalComment on above: Performed By: #### TSH, MCMP, T3R, VIDT, ADIF, FRT4, B12, ABC #### [facility] [address] [place] [address] 40130NHMFCPQEXBCGXfg [facility] HospitalComment on above:Performed By: #### TSH, MCMP, T3R, VIDT, ADIF, FRT4, B12, ABC #### [facility] [address] [place], [place] [address]CUVFoq [facility] HospitalComment on above: Performed By: #### TSH, MCMP, T3R, VIDT, ADIF, FRT4, B12, ABC #### [facility] [address] [place], [place] [address]VYDXgk [facility] HospitalComment on above: Performed By: #### TSH, MCMP, T3R, VIDT, ADIF, FRT4, B12, ABC #### [facility] [address] [place] [address] 72774IBQD:[facility] Regional HospitalComment on above:Result Comment: The results of this drug screen [...] ng/mL Tricyclic Antidepressants 300 ng/mL THC 50 ng/mLPerformed By: #### TSH, MCMP, T3R, VIDT, ADIF, FRT4, B12, ABC #### [facility] [address] [place] [address] Encounters Encounter DateEncounter TypeCare ProviderFacilityStart: 10-07-2023 End: 62-07-3575timgxepqieCEPZLKBAE [facility] W[place]UStart: 10-05-2023 ambulatoryALICIA D [facility] WUStart: 09-20-2023 End: 85-56-1003glzqpzdvvmOWQKIL MED [facility] Start: 09-12-2023 End: 67-66-9505xwhhzeegscGHCYWE D [facility]23 Encounter for other preprocedural examinationALICIA D [facility] WU Payers DatePayer CategoryPayerPolicy [id number] Health [id number] Summary Purpose Family History No Family History Records FoundNo Family History Records Found Advance Directives No Advanced Directives Records FoundNo Advanced Directives Records Found Additional Source Comments INFORMATION SOURCE (unrecogn ized section and content) DATE CREATED AUTHOR 07/19/2021 [facility]. DATE CREATED AUTHOR AUTHOR'S ORGANIZ ATION 10/08/2023 [facility] FOR RECORDS PERTAINING TO PATIENTS WHO ARE [...] BE BASED ON THE PRIMARY CLINICAL RECORDS. [facility] CenterPersonal Medicine [facility]. provides no warranty or guarantee of the accuracy or completeness of information in this document.
== END 2025-05-17 16:00 | disposition home or self-care (01) ==
DX: E55.9 Vitamin D deficiency, unspecified (principal); Z98.890 Other specified postprocedural states; Z90.89 Acquired absence of other organs
CPT/HCPCS: 36415; 82306; 82310; 83970